=== PATIENT | male | born 1945 | race Caucasian/White ===

== ENCOUNTER 2019-11-02 05:11 | Inpatient (IN) | payer OTHER ==
[2019-11-02] MEDS ORDERED: Fentanyl 100 MCG/2 ML VIAL ONE (05:18)
[2019-11-02 05:31] LABS: #Basophils 0.1 thou/uL (0.0-0.2); #Eosinphils 0.2 thou/uL (0.0-0.7); #Lymphocytes 3.2 thou/uL (1.20-3.40); #Monocytes 0.5 thou/uL (0.11-0.59); #Neutrophils 5.2 thou/uL (1.40-6.50); %Basophils 0.8 % (0.0-1.0); %Eosinophils 1.8 % (0.0-10.0); %Lymphocytes 34.9 % (21.0-51.0); %Monocytes 5.5 % (0.0-10.0); Hemoglobin 15.7 g/dL (14.0-18.0); Mean Corpuscular HGB CONC 34.2 g/dL (32.0-36.0); Mean Corpuscular Volume 96.3 fL (78.0-98.0); Mean Platelet Volume 7.4 fL (7.4-10.4); Platelet Count 227 thou/uL (130-400); RBC Distribution Width 11.2 % (11.5-14.5); Red Blood Cell (RBC) Count 4.77 mill/uL (4.70-6.10); White Blood Cell (WBC) Count 9.2 thou/uL (4.8-10.8)
[2019-11-02 05:40] LABS: Prothrombin Time 13.2 SEC (12.0-14.7)
[2019-11-02 05:41] LABS: PTT 93.1 SEC (22.9-36.1)
[2019-11-02 06:30] LABS: ALT (SGPT) 33 U/L (8-55); AST (SGOT) 44 U/L (5-34); Albumin 4.1 g/dL (3.4-4.8); Alkaline Phosphatase 73 U/L (40-110); Anion Gap 18 mmol/L (10-20); BUN (Urea Nitrogen) 17 mg/dL (8.4-25.7); Bilirubin, Total 0.5 mg/dL (0.2-1.2); CK (CPK) 540 U/L (30-200); Calc. Creatinine Clearance 0 mL/min (70-130); Calcium 9.4 mg/dL (7.8-10.44); Carbon Dioxide 19 mmol/L (23-31); Chloride 106 mmol/L (98-107); Estimated GFR-MDRD 55; Globulin 2.5 g/dL (2.4-3.5); Glucose 140 mg/dL (83-110); Lipase 241 U/L (8-78); Potassium 3.9 mmol/L (3.5-5.1); Protein, Total 6.6 g/dL (5.8-8.1); Sodium 139 mmol/L (136-145)
[2019-11-02] MEDS ORDERED: Aggrastat 12.5 MG/250 ML 250 ML ONE (06:51)
[2019-11-02] MEDS ORDERED: TICAGRELOR 90 MG TABLET ONE (06:51)
[2019-11-02] MEDS ORDERED: Atropine Sulfate 1 mg/1 ml Vial ONE (07:17)
[2019-11-02] MEDS ORDERED: Atropine Sulfate 1 mg/10 ml Syringe ONE (07:17)
[2019-11-02 07:51] LABS: CKMB 13.4 ng/mL (0-6.6)
[2019-11-02] MEDS ORDERED: Nitroglycerin 0.4 MG TAB (25 Tab Bottle) SL PRN (08:04)
[2019-11-02] MEDS ORDERED: Morphine 4 MG/ML VIAL IV PRN (08:05)
[2019-11-02] MEDS ORDERED: Mag-Al 1200 mg/1200 mg/30 ML UDCUP PO PRN (08:08)
[2019-11-02] MEDS ORDERED: Acetaminophen/Codeine 30-300mg Tablet PO PRN ×2 (08:08→08:09)
[2019-11-02] MEDS ORDERED: Milk Of Magnesia 30 ML UDCUP PO PRN (08:08)
[2019-11-02] MEDS ORDERED: Zolpidem Tartrate 5 MG TAB PO PRN (08:09)
[2019-11-02] MEDS ORDERED: cloNIDine 0.1 MG TAB PO PRN (08:10)
[2019-11-02] MEDS ORDERED: Enoxaparin Sodium 100 MG/ML SYRINGE SC SCH (09:00)
--- NOTE | 2019-11-02 09:07 | RAD ---
PORTABLE CHEST: Date: 11/02/2019 HISTORY: Chest pain. No comparison. FINDINGS/IMPRESSION: Mild cardiomegaly. Vascular and interstitial markings are prominent, possibly representing mild conge stion. No focal consolidation or significant effusion. POS: [facility]
--- NOTE | 2019-11-02 09:26 | HP ---
INDICATION FOR ADMISSION: A 74-year-old patient with acute anterior myocardial infarction, ST-segment elevation. 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 He awoken this morning around 4 o'clock with what he describes as being back pain, which then radiated to the chest area. He went to the emergency room. He drove himself to the emergency room. EKG there showed acute ST-segment elevation in the anterior leads. He was then transferred to our facility. There was some delay in getting the patient to the cardiac concrete plant laborer in the midst of doing another acute [place]. The patient was then brought to the cardiac concrete plant laborer. By the time he arrived here, his pain had decreased, but he still described as having chest pain and back discomfort. He was not diaphoretic, had no shortness of breath, and we proceeded to the cardiac concrete plant laborer. PAST MEDICAL HISTORY: Significant for a quadriceps tear, which was repaired surgically. Otherwise, he has been healthy. He does have hypertension and hypercholesterolemia. He has been taking medications for his hypertension, but has not been taking his cholesterol medications. He takes multiple [id number] supplements. His risk factors for coronary artery disease included hypertension and hypercholesterolemia. He has no diabetes. He does not smoke and has no strong family history of heart disease, but his mother did have a myocardial infarction in her 60s. REVIEW OF SYSTEMS: Unremarkable except what was noted in the history of present illness. MEDICATIONS: He was takin. Amlodipine. 2. Multiple supplements. ALLERGIES: NONE. PHYSICAL EXAMINATION: GENERAL: Reveals a well-developed, well-nourished gentleman, who actually appears somewhat younger than his stated age. VITAL SIGNS: Blood pressure is 120/71, heart rate was 60s and 70s and shows a sinus rhythm, and respiratory rate 16. He is afebrile. HEENT: Shows the head to be normocephalic and atraumatic. Carotid pulses are present. HEART: His cardiac evaluation showed no evidence of a significant murmurs, heaves, thrills, bruits, or rubs. Carotid pulses were present. ABDOMEN: Unremarkable. EXTREMITIES: Showed no clubbing, cyanosis, or edema. NEUROLOGIC: He was fully intact. LABORATORY DATA: Performed at an outside facility showed a troponin I of 1.16 with an MB of 11.9. His BUN was 16 with a creatinine of 1.4 and AST was 55. Hemoglobin was 15.9. An EKG as noted above. The patient was taken emergently to the cardiac concrete plant laborer. I did explain the procedure and the risks to him to include bleeding, infection, possibility of myocardial infarction, CVA, renal insufficiency, allergic contrast reaction, and the possibility of and he agreed to proceed. IMPRESSION: 1. Acute ST-segment elevation anterior myocardial infarction. 2. Hypertension. 3. Hypercholesterolemia. Job ID: [id number]
[2019-11-02] MEDS ORDERED: Iopamidol 370 76% 50 ML VIAL FS ONE (09:28)
[2019-11-02] MEDS ORDERED: Iopamidol 370 76% 100 ML VIAL ONE (09:28)
[2019-11-02] MEDS ORDERED: Furosemide 20 MG/2 ML VIAL SLOW IVP SCH (10:00)
[2019-11-02] MEDS: Morphine 2 MG/ML SYRINGE SLOW IVP PRN ×2 (10:24→11:44)
[2019-11-02] MEDS ORDERED: Aggrastat 12.5 MG/250 ML 250 ML IVPB SCH (11:00)
[2019-11-02] MEDS: Carvedilol 3.125 MG TAB PO SCH ×2 (11:49→20:41)
[2019-11-02] MEDS: Lisinopril 2.5 MG TAB PO SCH (11:49)
[2019-11-02] MEDS: Aspirin Chewable 81 MG TAB PO SCH (11:50)
[2019-11-02] MEDS: TICAGRELOR 90 MG TABLET PO SCH ×2 (11:51→20:42)
[2019-11-02 12:15] LABS: #Lymphocytes 1.6 thou/uL (1.20-3.40); #Monocytes 0.8 thou/uL (0.11-0.59); #Neutrophils 9.9 thou/uL (1.40-6.50); %Basophils 0.3 % (0.0-1.0); %Eosinophils 0.3 % (0.0-10.0); %Lymphocytes 13.2 % (21.0-51.0); %Monocytes 6.1 % (0.0-10.0); %Neutrophils 80.1 % (42.0-75.0); Mean Corpuscular HGB CONC 34.8 g/dL (32.0-36.0); Mean Corpuscular Hemoglobin 33.1 pg (27.0-31.0); Mean Corpuscular Volume 95.2 fL (78.0-98.0); Mean Platelet Volume 7.3 fL (7.4-10.4); Platelet Count 260 thou/uL (130-400); RBC Distribution Width 11.2 % (11.5-14.5); Red Blood Cell (RBC) Count 5.14 mill/uL (4.70-6.10); White Blood Cell (WBC) Count 12.4 thou/uL (4.8-10.8)
[2019-11-02 13:07] LABS: Troponin I 281.605 ng/mL (< 0.028)
--- NOTE | 2019-11-02 14:00 | CON ---
DATE OF CONSULTATION: 11/02/2019 SERVICE: Pulmonary Medicine. REASON FOR CONSULTATION: ICU patient. HISTORY OF PRESENT ILLNESS: The patient is a 74-year-old white male with past medical history significant for coronary artery disease, dyslipidemia, and hypertension. He was in his usual state of health when he went to bed last night. He woke up at 0400 hours this morning with severe chest discomfort. He knew something was wrong and presented immediately to the emergency department, where he was discovered to be suffering from an ST-elevation GA. He was transferred to the mobile home laborer here. An LAD lesion was identified, and a stent was placed. There was also a very severe stenosis of the right coronary system. That being said, no intervention was performed there. After the stent was placed, he ended up having resolution in his chest discomfort. That being said, the night went on, he started having increasing dyspnea and limit his activity, and a little bit of a cough. He got a dose of Lasix, his shortness of breath is improved, albeit still present, but his cough has resolved completely. He denies any current or recent fevers, chills, cough, sputum production, nausea, vomiting, or diarrhea. Otherwise, he is in his usual state of health. PAST MEDICAL HISTORY: 1. Coronary artery disease. 2. Dyslipidemia. 3. Hypertension. PAST SURGICAL HISTORY: Repair of quadriceps tendon. FAMILY HISTORY: Noncontributory. SOCIAL HISTORY: Negative for alcohol, tobacco, or illicit drug use. 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 He has no exposure to chemicals, dust, asbestos, or tuberculosis. ALLERGIES: NO KNOWN DRUG ALLERGIES. MEDICATIONS: List of his inpatient medications was reviewed. I have added a little Ativan to be used on a p.r.n. basis. REVIEW OF SYSTEMS: General; head, ears, eyes, nose, throat; cardiovascular; respiratory; GI; ; musculoskeletal; neurologic; and skin are negative except as mentioned in the HPI. PHYSICAL EXAMINATION: VITAL SIGNS: Afebrile, pulse 85, blood pressure 145/106, respirations 25, and saturation 95% currently on 2 L nasal cannula. GENERAL: The patient is awake and alert, in no apparent distress. LUNGS: Excellent air entry with minimal dependent crackles present. There is no prolonged expiratory phase or wheezing appreciated. HEART: Normal rate and regular. ABDOMEN: Soft, nontender, and nondistended. Bowel sounds are positive. MUSCULOSKELETAL: No cyanosis or clubbing. There is no pitting in the bilateral lower extremities. Pulses are equal at the DP. : No Larsen. NEUROLOGIC: Grossly nonfocal. LABORATORY DATA: WBC 12.4, hemoglobin 17.0, and platelets 260,000. Troponin . Basic metabolic profile and liver function studies otherwise unremarkable. Lipase is mildly elevated at 241. IMAGING DATA: Chest x-ray demonstrates no acute cardiopulmonary process. There is no pneumothorax, effusions, or consolidating changes identified. ASSESSMENT: 1. Acute hypoxic respiratory failure, mild. 2. Acute myocardial infarction, status post PCI with TYLOR to LAD. DISCUSSION AND PLAN: The patient is doing fine from respiratory standpoint. We will repeat a lipase tomorrow morning. I will provide him with Ativan on as needed basis . Otherwise, supportive care will be continued. We will wean oxygen away as tolerated. Pulmonary will follow in this location. Job ID: [id number]
[2019-11-02] MEDS: Lorazepam 2 MG/ML VIAL SLOW IVP PRN ×2 (14:42→22:15)
[2019-11-02 18:38] LABS: #Lymphocytes 1.2 thou/uL (1.20-3.40); #Monocytes 0.7 thou/uL (0.11-0.59); #Neutrophils 10.7 thou/uL (1.40-6.50); %Basophils 0.1 % (0.0-1.0); %Eosinophils 0.1 % (0.0-10.0); %Lymphocytes 9.5 % (21.0-51.0); %Monocytes 5.6 % (0.0-10.0); %Neutrophils 84.7 % (42.0-75.0); Hemoglobin 16.8 g/dL (14.0-18.0); Mean Corpuscular Hemoglobin 32.6 pg (27.0-31.0); Mean Corpuscular Volume 95.7 fL (78.0-98.0); Mean Platelet Volume 7.3 fL (7.4-10.4); Platelet Count 265 thou/uL (130-400); RBC Distribution Width 11.3 % (11.5-14.5); Red Blood Cell (RBC) Count 5.16 mill/uL (4.70-6.10); White Blood Cell (WBC) Count 12.7 thou/uL (4.8-10.8)
[2019-11-02 18:51] LABS: Potassium 4.1 mmol/L (3.5-5.1)
[2019-11-02 19:21] LABS: Critical Call Chem Troponin I RESULT DECREASING; Troponin I 221.704 ng/mL (< 0.028)
[2019-11-02] MEDS: Famotidine 20 MG TAB PO SCH (20:41)
[2019-11-02] MEDS ORDERED: Atorvastatin Calcium 40 MG TAB PO SCH (21:00)
[2019-11-03 00:19] LABS: #Lymphocytes 1.7 thou/uL (1.20-3.40); #Neutrophils 10.3 thou/uL (1.40-6.50); %Basophils 0.3 % (0.0-1.0); %Eosinophils 0.2 % (0.0-10.0); %Lymphocytes 12.9 % (21.0-51.0); %Monocytes 7.4 % (0.0-10.0); %Neutrophils 79.2 % (42.0-75.0); Hemoglobin 15.9 g/dL (14.0-18.0); Mean Corpuscular HGB CONC 34.7 g/dL (32.0-36.0); Mean Corpuscular Hemoglobin 33.3 pg (27.0-31.0); Mean Platelet Volume 7.6 fL (7.4-10.4); Platelet Count 246 thou/uL (130-400); RBC Distribution Width 11.4 % (11.5-14.5); Red Blood Cell (RBC) Count 4.78 mill/uL (4.70-6.10)
[2019-11-03 03:54] LABS: #Basophils 0.1 thou/uL (0.0-0.2); #Lymphocytes 1.7 thou/uL (1.20-3.40); #Monocytes 1.1 thou/uL (0.11-0.59); #Neutrophils 11.8 thou/uL (1.40-6.50); %Eosinophils 0.2 % (0.0-10.0); %Lymphocytes 11.8 % (21.0-51.0); %Monocytes 7.3 % (0.0-10.0); %Neutrophils 79.8 % (42.0-75.0); Hemoglobin 16.3 g/dL (14.0-18.0); Mean Corpuscular HGB CONC 34.4 g/dL (32.0-36.0); Mean Corpuscular Volume 95.9 fL (78.0-98.0); Mean Platelet Volume 7.6 fL (7.4-10.4); Platelet Count 256 thou/uL (130-400); RBC Distribution Width 11.3 % (11.5-14.5); Red Blood Cell (RBC) Count 4.96 mill/uL (4.70-6.10); White Blood Cell (WBC) Count 14.8 thou/uL (4.8-10.8)
[2019-11-03 04:44] LABS: ALT (SGPT) 103 U/L (8-55); AST (SGOT) 471 U/L (5-34); Albumin 3.9 g/dL (3.4-4.8); Alkaline Phosphatase 60 U/L (40-110); Anion Gap 13 mmol/L (10-20); BUN (Urea Nitrogen) 23 mg/dL (8.4-25.7); Bilirubin, Total 1.3 mg/dL (0.2-1.2); Calc. Creatinine Clearance 70 mL/min (70-130); Calcium 9.1 mg/dL (7.8-10.44); Carbon Dioxide 25 mmol/L (23-31); Chloride 106 mmol/L (98-107); Estimated GFR-MDRD 56; Globulin 2.4 g/dL (2.4-3.5); Glucose 125 mg/dL (83-110); Lipase 31 U/L (8-78); Potassium 4.2 mmol/L (3.5-5.1); Protein, Total 6.3 g/dL (5.8-8.1); Sodium 140 mmol/L (136-145)
[2019-11-03] MEDS ORDERED: FLU VACC TS2019-20(65YR UP)/PF 180 MCG/0.5 ML SYRINGE IM ONE (09:00)
[2019-11-03] MEDS ORDERED: Prevnar 13-Val Conj/PF 0.5 ML SYRINGE IM ONE (09:00)
[2019-11-03] MEDS: Aspirin Chewable 81 MG TAB PO SCH (09:09)
[2019-11-03] MEDS: Carvedilol 3.125 MG TAB PO SCH ×2 (09:10→20:02)
[2019-11-03] MEDS: Lisinopril 2.5 MG TAB PO SCH (09:10)
[2019-11-03] MEDS: Famotidine 20 MG TAB PO SCH ×2 (09:11→20:02)
[2019-11-03] MEDS: TICAGRELOR 90 MG TABLET PO SCH ×2 (09:13→20:03)
[2019-11-03 12:54] LABS: Hemoglobin 16.3 g/dL (14.0-18.0); Mean Corpuscular Hemoglobin 31.6 pg (27.0-31.0); Mean Corpuscular Volume 95.6 fL (78.0-98.0); Mean Platelet Volume 7.5 fL (7.4-10.4); Platelet Count 305 thou/uL (130-400); RBC Distribution Width 11.4 % (11.5-14.5); Red Blood Cell (RBC) Count 5.15 mill/uL (4.70-6.10); White Blood Cell (WBC) Count 15.6 thou/uL (4.8-10.8)
[2019-11-03 13:33] LABS: Band 15 % (5-11); Elliptocytes SLIGHT = 2-5 cells (100X) (0-1/hpf); Lymphocytes 1 % (21-51); MDiff Complete? YES; Macrocytosis SLIGHT = 6-15 cells (100X) (0-5/hpf); Monocytes 4 % (0-10); Neutrophil 73 % (42-75); Ovalocytes MODERATE= 6-15 cells (100X) (0-1/hpf); Platelet Morphology Comment Appears Adequate; Polychromasia SLIGHT = 2-3 cells (100X) (0-2/hpf); Reactive Lymphocytes 7 % (0-10)
--- NOTE | 2019-11-03 17:00 | PRG ---
DATE OF SERVICE: 11/03/2019 SERVICE: Pulmonary Medicine. INTERVAL HISTORY: The patient is doing great from respiratory standpoint. He was able to walk with Physical Therapy. He has also been walking on his own. With this, he does have a little bit of dyspnea, limits his activity worse than usual. Previously, he was able to work on pretty high level. Now, he does have a little bit of increasing shortness of breath whenever exerting himself minimally. He denies any current fevers or chills. There were no significant overnight events. He has a CPAP at home, but does not have it available for use currently. PHYSICAL EXAMINATION: VITAL SIGNS: Afebrile, pulse 67, blood pressure 152/104, respirations 17, and saturation 94%, currently on room air. GENERAL: The patient is awake and alert, in no apparent distress. LUNGS: Decent air entry. Minimal crackles are present. No prolonged expiratory phase or wheezing is appreciated. HEART: Normal rate. Regular. ABDOMEN: Soft, nontender, and nondistended. Bowel sounds are positive. MUSCULOSKELETAL: No cyanosis or clubbing. There is no pitting in the bilateral lower extremities. NEUROLOGIC: Grossly nonfocal. LABORATORY DATA: WBC 15.6, hemoglobin 16.3, platelets 305,000. Neutrophils are 73% with 15% bands superimposed on that. AST and ALT are significantly up trending. Total bilirubin level has elevated as well. Basic metabolic profile and liver function studies are otherwise unremarkable. Troponin remains elevated. ASSESSMENT: 1. Acute hypoxic respiratory failure, improved. 2. Acute myocardial infarction, status post PCI with TYLOR to LAD. 3. Obstructive sleep apnea, compliant with CPAP therapy based on history. DISCUSSION AND PLAN: The patient is doing okay from respiratory standpoint. He is going to continue increasing activity as tolerated. Pulmonary/Critical Care will continue to follow along. If the patient remains in-house to the floor, I will sign off. Please call with additional questions or concerns through time. Job ID: [id number]
--- NOTE | 2019-11-03 17:02 | EKG ---
Test Reason : Blood Pressure : / mmHG Vent. Rate : 065 BPM Atrial Rate : 065 BPM P-R Int : 178 ms QRS Dur : 084 ms QT Int : 400 ms P-R-T Axes : 084 -61 007 degrees QTc Int : 416 ms Normal sinus rhythm Left axis deviation Anteroseptal infarct possibly acute Abnormal ECG No previous ECGs available Confirmed by DR. Abraham ODONNELL ([id number]) on 11/03/2019 5:02:31 PM Referred By: EVAN Confirmed By:DR. Abraham ODONNELL
[2019-11-03 18:00] LABS: #Lymphocytes 2.1 thou/uL (1.20-3.40); #Monocytes 1.2 thou/uL (0.11-0.59); #Neutrophils 12.3 thou/uL (1.40-6.50); %Basophils 0.2 % (0.0-1.0); %Eosinophils 0.1 % (0.0-10.0); %Lymphocytes 13.3 % (21.0-51.0); %Monocytes 7.9 % (0.0-10.0); %Neutrophils 78.6 % (42.0-75.0); Hemoglobin 16.8 g/dL (14.0-18.0); Mean Corpuscular HGB CONC 34.3 g/dL (32.0-36.0); Mean Corpuscular Hemoglobin 33.1 pg (27.0-31.0); Mean Corpuscular Volume 96.4 fL (78.0-98.0); Mean Platelet Volume 7.5 fL (7.4-10.4); Platelet Count 309 thou/uL (130-400); RBC Distribution Width 11.4 % (11.5-14.5); Red Blood Cell (RBC) Count 5.09 mill/uL (4.70-6.10); White Blood Cell (WBC) Count 15.7 thou/uL (4.8-10.8)
[2019-11-03] MEDS: Atorvastatin Calcium 40 MG TAB PO SCH (20:02)
[2019-11-04 04:36] LABS: ALT (SGPT) 78 U/L (8-55); AST (SGOT) 210 U/L (5-34); Albumin 3.9 g/dL (3.4-4.8); Alkaline Phosphatase 56 U/L (40-110); Bilirubin, Direct 0.4 mg/dL (0.1-0.3); Bilirubin, Total 1.4 mg/dL (0.2-1.2); Protein, Total 6.5 g/dL (5.8-8.1)
[2019-11-04 05:31] VITALS: BMI 29.9
[2019-11-04 06:11] LABS: #Monocytes 1.1 thou/uL (0.11-0.59); #Neutrophils 11.8 thou/uL (1.40-6.50); %Basophils 0.1 % (0.0-1.0); %Eosinophils 0.2 % (0.0-10.0); %Lymphocytes 13.2 % (21.0-51.0); %Monocytes 7.6 % (0.0-10.0); %Neutrophils 78.8 % (42.0-75.0); Hemoglobin 14.8 g/dL (14.0-18.0); Mean Corpuscular HGB CONC 32.4 g/dL (32.0-36.0); Mean Corpuscular Hemoglobin 31.2 pg (27.0-31.0); Mean Corpuscular Volume 96.2 fL (78.0-98.0); Mean Platelet Volume 7.7 fL (7.4-10.4); Platelet Count 244 thou/uL (130-400); RBC Distribution Width 11.3 % (11.5-14.5); Red Blood Cell (RBC) Count 4.75 mill/uL (4.70-6.10); White Blood Cell (WBC) Count 14.9 thou/uL (4.8-10.8)
[2019-11-04] MEDS: Carvedilol 3.125 MG TAB PO SCH ×2 (08:27→19:55)
[2019-11-04] MEDS: Famotidine 20 MG TAB PO SCH ×2 (08:27→19:55)
[2019-11-04] MEDS: Lisinopril 2.5 MG TAB PO SCH (08:28)
[2019-11-04] MEDS: TICAGRELOR 90 MG TABLET PO SCH ×2 (08:28→19:56)
[2019-11-04] MEDS: Aspirin Chewable 81 MG TAB PO SCH (08:28)
[2019-11-04] MEDS: Furosemide 20 MG TAB PO SCH (08:28)
[2019-11-04] MEDS ORDERED: Potassium Chloride 10 MEQ TAB PO SCH (09:15)
[2019-11-04] MEDS ORDERED: Lisinopril 2.5 MG TAB PO SCH (09:15)
[2019-11-04 12:20] LABS: #Lymphocytes 1.9 thou/uL (1.20-3.40); #Monocytes 1.5 thou/uL (0.11-0.59); #Neutrophils 14.4 thou/uL (1.40-6.50); %Basophils 0.2 % (0.0-1.0); %Eosinophils 0.2 % (0.0-10.0); %Lymphocytes 10.5 % (21.0-51.0); %Monocytes 8.5 % (0.0-10.0); %Neutrophils 80.7 % (42.0-75.0); Hemoglobin 15.6 g/dL (14.0-18.0); Mean Corpuscular HGB CONC 34.2 g/dL (32.0-36.0); Mean Corpuscular Hemoglobin 32.9 pg (27.0-31.0); Mean Corpuscular Volume 96.2 fL (78.0-98.0); Mean Platelet Volume 7.7 fL (7.4-10.4); Platelet Count 269 thou/uL (130-400); RBC Distribution Width 11.3 % (11.5-14.5); Red Blood Cell (RBC) Count 4.74 mill/uL (4.70-6.10); White Blood Cell (WBC) Count 17.9 thou/uL (4.8-10.8)
[2019-11-04 18:18] LABS: #Lymphocytes 1.7 thou/uL (1.20-3.40); #Monocytes 0.9 thou/uL (0.11-0.59); #Neutrophils 10.1 thou/uL (1.40-6.50); %Eosinophils 0.1 % (0.0-10.0); %Lymphocytes 13.3 % (21.0-51.0); %Monocytes 7.3 % (0.0-10.0); %Neutrophils 79.3 % (42.0-75.0); Hemoglobin 14.3 g/dL (14.0-18.0); Mean Corpuscular HGB CONC 33.9 g/dL (32.0-36.0); Mean Corpuscular Hemoglobin 32.6 pg (27.0-31.0); Mean Corpuscular Volume 96.2 fL (78.0-98.0); Mean Platelet Volume 7.4 fL (7.4-10.4); Platelet Count 210 thou/uL (130-400); RBC Distribution Width 11.3 % (11.5-14.5); White Blood Cell (WBC) Count 12.7 thou/uL (4.8-10.8)
--- NOTE | 2019-11-04 18:37 | PRG ---
DATE OF SERVICE: 11/04/2019 SERVICE: Pulmonary Medicine. INTERVAL HISTORY: The patient is doing really well from a respiratory standpoint. He has been able to walk around the hospital without much difficulty. That being said, he does have a little dyspnea that limits his activity. He has no complaints of chest discomfort, nausea, or vomiting currently. Otherwise, there has been no interval change to his condition and nursing reports no overnight events. PHYSICAL EXAMINATION: VITAL SIGNS: Afebrile, pulse 67, blood pressure 110/79, respirations 21, saturation 98%, currently on room air. GENERAL: The patient is awake and alert, in no apparent distress. LUNGS: Decent air entry. No prolonged expiratory phase or wheezing is appreciated. HEART: Normal rate, regular. ABDOMEN: Soft, nontender, and nondistended. Bowel sounds are positive. MUSCULOSKELETAL: No cyanosis or clubbing. There is no pitting in the bilateral lower extremities. NEUROLOGIC: Grossly nonfocal. LABORATORY DATA: WBC 17.9, hemoglobin 15.6, and platelets 269,000. AST and ALT are gently downtrending, total bilirubin 1.4, slowly up trending. IMAGING STUDIES: Echocardiogram demonstrates 35% to 40% ejection fraction with areas of akinesis and hypokinesis. ASSESSMENT: 1. Acute hypoxic respiratory failure, resolved. 2. Acute myocardial infarction, status post percutaneous coronary intervention with drug-eluting stent to left anterior descending artery. 3. Obstructive sleep apnea, compliant with CPAP, based on history. DISCUSSION AND PLAN: The patient is doing great from a respiratory standpoint. At this point, he has no further requirements for inpatient Pulmonary or Critical Care opinion, and I will sign off. Please call with additional questions or concerns through time moving forward. Job ID: [id number]
[2019-11-04] MEDS: Atorvastatin Calcium 40 MG TAB PO SCH (19:55)
[2019-11-05 00:19] LABS: #Basophils 0.1 thou/uL (0.0-0.2); #Lymphocytes 2.5 thou/uL (1.20-3.40); #Monocytes 1.1 thou/uL (0.11-0.59); #Neutrophils 12.1 thou/uL (1.40-6.50); %Basophils 0.4 % (0.0-1.0); %Eosinophils 0.2 % (0.0-10.0); %Lymphocytes 15.7 % (21.0-51.0); %Neutrophils 76.7 % (42.0-75.0); Hemoglobin 14.9 g/dL (14.0-18.0); Mean Corpuscular HGB CONC 34.6 g/dL (32.0-36.0); Mean Corpuscular Hemoglobin 33.2 pg (27.0-31.0); Mean Corpuscular Volume 96.1 fL (78.0-98.0); Mean Platelet Volume 7.6 fL (7.4-10.4); Platelet Count 259 thou/uL (130-400); RBC Distribution Width 11.2 % (11.5-14.5); Red Blood Cell (RBC) Count 4.47 mill/uL (4.70-6.10); White Blood Cell (WBC) Count 15.7 thou/uL (4.8-10.8)
[2019-11-05 05:20] LABS: #Lymphocytes 1.4 thou/uL (1.20-3.40); #Monocytes 0.9 thou/uL (0.11-0.59); #Neutrophils 9.8 thou/uL (1.40-6.50); %Eosinophils 0.2 % (0.0-10.0); %Lymphocytes 11.8 % (21.0-51.0); %Monocytes 7.7 % (0.0-10.0); %Neutrophils 80.3 % (42.0-75.0); Hemoglobin 14.3 g/dL (14.0-18.0); Mean Corpuscular HGB CONC 34.4 g/dL (32.0-36.0); Mean Corpuscular Hemoglobin 33.1 pg (27.0-31.0); Mean Corpuscular Volume 96.3 fL (78.0-98.0); Mean Platelet Volume 7.8 fL (7.4-10.4); Platelet Count 220 thou/uL (130-400); RBC Distribution Width 11.1 % (11.5-14.5); Red Blood Cell (RBC) Count 4.31 mill/uL (4.70-6.10); White Blood Cell (WBC) Count 12.2 thou/uL (4.8-10.8)
[2019-11-05] MEDS: Potassium Chloride 10 MEQ TAB PO SCH (09:42)
[2019-11-05] MEDS: TICAGRELOR 90 MG TABLET PO SCH ×2 (09:42→21:00)
[2019-11-05] MEDS: Famotidine 20 MG TAB PO SCH ×2 (09:42→21:00)
[2019-11-05] MEDS: Lisinopril 2.5 MG TAB PO SCH (09:42)
[2019-11-05] MEDS: Aspirin Chewable 81 MG TAB PO SCH (09:42)
[2019-11-05] MEDS: Furosemide 20 MG TAB PO SCH (09:43)
[2019-11-05 11:58] LABS: #Lymphocytes 1.4 thou/uL (1.20-3.40); #Monocytes 0.9 thou/uL (0.11-0.59); #Neutrophils 11.2 thou/uL (1.40-6.50); %Basophils 0.2 % (0.0-1.0); %Eosinophils 0.1 % (0.0-10.0); %Monocytes 6.9 % (0.0-10.0); Hemoglobin 14.1 g/dL (14.0-18.0); Mean Corpuscular HGB CONC 33.8 g/dL (32.0-36.0); Mean Corpuscular Hemoglobin 32.6 pg (27.0-31.0); Mean Corpuscular Volume 96.5 fL (78.0-98.0); Mean Platelet Volume 7.4 fL (7.4-10.4); Platelet Count 237 thou/uL (130-400); RBC Distribution Width 11.2 % (11.5-14.5); Red Blood Cell (RBC) Count 4.33 mill/uL (4.70-6.10); White Blood Cell (WBC) Count 13.5 thou/uL (4.8-10.8)
--- NOTE | 2019-11-05 12:49 | PDOC.CPN ---
- Subjective Date: 11/05/19 Time: 12:54 Interval history: The pt seen and examined. No overnight events. No cardiac complaints. - Objective Allergies/Adverse Reactions: Allergies Allergy/AdvReac Type Severity Reaction Status Date / Time No Known Allergies Allergy Unverified 11/02/19 07:56 Visit Medications: Current Medications Acetaminophen/Codeine Phosphate (Tylenol #3) 1 tab PO Q4H PRN PRN Reason: M Acetaminophen/Codeine Phosphate (Tylenol #3) 2 tab PO Q4H PRN PRN Reason: Moderate Pain (4-6) Last Admin: 11/02/19 14:42 Dose: 2 tab Al Hydroxide/Mg Hydroxide (Maalox) 30 ml PO Q3H PRN PRN Reason: Heartburn or Indigestion Aspirin (Aspirin Chewable) 81 mg PO DAILY [facility] Last Admin: 11/05/19 09:42 Dose: 81 mg Atorvastatin Calcium (Lipitor) 40 mg PO HS [facility] Last Admin: 11/04/19 19:55 Dose: 40 mg Clonidine (Catapres) 0.1 mg PO Q2H PRN PRN Reason: SBP > 160 Famotidine (Pepcid) 20 mg PO BID [facility] Last Admin: 11/05/19 09:42 Dose: 20 mg Furosemide (Lasix) 20 mg PO DAILY [facility] Last Admin: 11/05/19 09:43 Dose: 20 mg Lisinopril (Zestril) 5 mg PO DAILY [facility] Last Admin: 11/05/19 09:42 Dose: 5 mg Lorazepam (Ativan) 1 mg SLOW IVP Q4H PRN PRN Reason: Anxiety/Agitation Last Admin: 11/02/19 22:15 Dose: 1 mg Magnesium Hydroxide (Milk Of Magnesium) 30 ml PO Q12H PRN PRN Reason: Constipation Morphine Sulfate (Morphine) 2 mg SLOW IVP Q4H PRN PRN Reason: Moderate Pain (4-6) Last Admin: 11/02/19 11:44 Dose: 2 mg Morphine Sulfate (Morphine) 4 mg IV Q4H PRN PRN Reason: Severe Pain (7-10) Nitroglycerin (Nitrostat) 0.4 mg SL Q5MIN PRN PRN Reason: Chest Pain Potassium Chloride (Klor-Con 10) 10 meq PO QAM-WM [facility] Last Admin: 11/05/19 09:42 Dose: 10 meq Sodium Chloride (Flush - Normal Saline) 10 ml IVF Q12HR JF Last Admin: 11/05/19 09:43 Dose: 10 ml Sodium Chloride (Flush - Normal Saline) 10 ml IVF PRN PRN PRN Reason: Saline Flush Ticagrelor (Brilinta) 90 mg PO BID [facility] Last Admin: 11/05/19 09:42 Dose: 90 mg Zolpidem Tartrate (Ambien) 5 mg PO HSPRN PRN PRN Reason: IMSOMNIA Last Admin: 11/02/19 22:15 Dose: 5 mg Vital Signs & Weight: Vital Signs Temp Pulse Resp BP BP Pulse Ox 11/05/19 11:20 97.7 F 78 17 127/83 91 L 11/05/19 07:58 97.3 F L 89 18 135/77 95 11/05/19 03:25 98.4 F 68 18 113/64 92 L Weight 198 lb - Physical Exam General: alert & oriented x3 HEENT: mucus membranes moist Neck: supple neck Cardiac: regular rate and rhythm, S1/S2 Lungs: clear to auscultation Neuro: cranial nerve 2-12 intact Abdomen: unremarkable Skin: clear - Labs Result Diagrams: 11/05/19 11:48 11/03/19 03:32 Troponin/CKMB CK-MB (CK-2) 13.4 ng/mL (0-6.6) H* 11/02/19 05:18 Troponin I 221.704 ng/mL (< 0.028) H* 11/02/19 18:22 - Telemetry Sinus rhythms and dysrhythmias: sinus rhythm - Assessment/Plan Assessment/Plan: 1. CAD with s/p LHC on 11/02/2019 with TYLOR stent x 2 in prox and mid LAD and 80 % stenosis in mid RCA, which need further intervention; On Lisinopril, ASA, Lipitor and Brilinta; Coreg was stopped due to bradycardia 2. HLD - on Lipitor 40mg qd 3. Sleep apnea with Cpap 4. Bradycardia - Coreg is on hold from this AM; however, he had several episodes of dizziness with HR 30s today MAR reviewed
[2019-11-05 16:32] LABS: Magnesium 2.1 mg/dL (1.6-2.6); Potassium 3.9 mmol/L (3.5-5.1)
[2019-11-05] MEDS ORDERED: Furosemide 20 MG/2 ML VIAL SLOW IVP SCH (17:00)
[2019-11-05 17:54] LABS: #Lymphocytes 1.7 thou/uL (1.20-3.40); #Monocytes 0.9 thou/uL (0.11-0.59); #Neutrophils 9.5 thou/uL (1.40-6.50); %Basophils 0.2 % (0.0-1.0); %Eosinophils 0.3 % (0.0-10.0); %Lymphocytes 13.6 % (21.0-51.0); %Monocytes 7.2 % (0.0-10.0); %Neutrophils 78.7 % (42.0-75.0); Hemoglobin 14.5 g/dL (14.0-18.0); Mean Corpuscular HGB CONC 34.4 g/dL (32.0-36.0); Mean Corpuscular Hemoglobin 33.1 pg (27.0-31.0); Mean Corpuscular Volume 96.3 fL (78.0-98.0); Mean Platelet Volume 8.8 fL (7.4-10.4); Platelet Count 269 thou/uL (130-400); RBC Distribution Width 11.2 % (11.5-14.5); Red Blood Cell (RBC) Count 4.38 mill/uL (4.70-6.10); White Blood Cell (WBC) Count 12.1 thou/uL (4.8-10.8)
[2019-11-05] MEDS: Atorvastatin Calcium 40 MG TAB PO SCH (21:00)
[2019-11-06 00:18] LABS: Hemoglobin 13.9 g/dL (14.0-18.0); Mean Corpuscular Hemoglobin 32.7 pg (27.0-31.0); Mean Corpuscular Volume 96.4 fL (78.0-98.0); Mean Platelet Volume 7.9 fL (7.4-10.4); Platelet Count 233 thou/uL (130-400); RBC Distribution Width 11.2 % (11.5-14.5); Red Blood Cell (RBC) Count 4.25 mill/uL (4.70-6.10); White Blood Cell (WBC) Count 11.4 thou/uL (4.8-10.8)
[2019-11-06 00:43] LABS: Band 2 % (5-11); Lymphocytes 12 % (21-51); MDiff Complete? YES; Monocytes 6 % (0-10); Neutrophil 80 % (42-75)
[2019-11-06 06:08] LABS: #Basophils 0.1 thou/uL (0.0-0.2); #Lymphocytes 1.4 thou/uL (1.20-3.40); #Monocytes 0.7 thou/uL (0.11-0.59); #Neutrophils 7.9 thou/uL (1.40-6.50); %Basophils 0.5 % (0.0-1.0); %Eosinophils 0.3 % (0.0-10.0); %Lymphocytes 13.6 % (21.0-51.0); %Monocytes 6.9 % (0.0-10.0); %Neutrophils 78.7 % (42.0-75.0); Hemoglobin 13.6 g/dL (14.0-18.0); Mean Corpuscular HGB CONC 31.8 g/dL (32.0-36.0); Mean Corpuscular Hemoglobin 30.7 pg (27.0-31.0); Mean Corpuscular Volume 96.5 fL (78.0-98.0); Mean Platelet Volume 7.8 fL (7.4-10.4); Platelet Count 242 thou/uL (130-400); RBC Distribution Width 11.1 % (11.5-14.5); Red Blood Cell (RBC) Count 4.42 mill/uL (4.70-6.10)
[2019-11-06 06:37] LABS: ALT (SGPT) 47 U/L (8-55); AST (SGOT) 60 U/L (5-34); Albumin 3.5 g/dL (3.4-4.8); Alkaline Phosphatase 49 U/L (40-110); Anion Gap 12 mmol/L (10-20); BUN (Urea Nitrogen) 37 mg/dL (8.4-25.7); Bilirubin, Total 1.1 mg/dL (0.2-1.2); Calc. Creatinine Clearance 65 mL/min (70-130); Calcium 8.7 mg/dL (7.8-10.44); Carbon Dioxide 26 mmol/L (23-31); Chloride 105 mmol/L (98-107); Estimated GFR-MDRD 57; Globulin 2.5 g/dL (2.4-3.5); Glucose 113 mg/dL (83-110); Potassium 3.6 mmol/L (3.5-5.1); Sodium 139 mmol/L (136-145)
--- NOTE | 2019-11-06 08:23 | EKG ---
Test Reason : Blood Pressure : / mmHG Vent. Rate : 070 BPM Atrial Rate : 070 BPM P-R Int : 174 ms QRS Dur : 086 ms QT Int : 450 ms P-R-T Axes : 093 -51 252 degrees QTc Int : 486 ms Normal sinus rhythm Left axis deviation Anteroseptal infarct (cited on or before 02-NOV-2019) T wave abnormality, consider lateral ischemia Abnormal ECG When compared with ECG of 02-NOV-2019 08:29, Serial changes of evolving Anteroseptal infarct Present Confirmed by DR. Felicia AMEZCUA ([id number]) on 11/06/2019 8:23:21 AM Referred By: EVAN Confirmed By:DR. Felicia AMEZCUA
[2019-11-06] MEDS: Potassium Chloride 10 MEQ TAB PO SCH (09:30)
[2019-11-06] MEDS: Famotidine 20 MG TAB PO SCH ×2 (09:31→22:50)
[2019-11-06] MEDS: TICAGRELOR 90 MG TABLET PO SCH ×2 (09:31→22:50)
[2019-11-06] MEDS: Aspirin Chewable 81 MG TAB PO SCH (09:31)
[2019-11-06] MEDS: Furosemide 20 MG TAB PO SCH (09:31)
[2019-11-06] MEDS: Lisinopril 2.5 MG TAB PO SCH (09:33)
--- NOTE | 2019-11-06 11:30 | PDOC.CPN ---
- Subjective Date: 11/06/19 Time: 11:32 Interval history: The pt seen and examined. No overnight events. No cardiac complaints. - Objective Allergies/Adverse Reactions: Allergies Allergy/AdvReac Type Severity Reaction Status Date / Time No Known Allergies Allergy Unverified 11/02/19 07:56 Visit Medications: Current Medications Acetaminophen/Codeine Phosphate (Tylenol #3) 1 tab PO Q4H PRN PRN Reason: M Acetaminophen/Codeine Phosphate (Tylenol #3) 2 tab PO Q4H PRN PRN Reason: Moderate Pain (4-6) Last Admin: 11/02/19 14:42 Dose: 2 tab Al Hydroxide/Mg Hydroxide (Maalox) 30 ml PO Q3H PRN PRN Reason: Heartburn or Indigestion Aspirin (Aspirin Chewable) 81 mg PO DAILY [facility] Last Admin: 11/06/19 09:31 Dose: 81 mg Atorvastatin Calcium (Lipitor) 40 mg PO HS [facility] Last Admin: 11/05/19 21:00 Dose: 40 mg Clonidine (Catapres) 0.1 mg PO Q2H PRN PRN Reason: SBP > 160 Famotidine (Pepcid) 20 mg PO BID [facility] Last Admin: 11/06/19 09:31 Dose: 20 mg Furosemide (Lasix) 20 mg PO DAILY [facility] Last Admin: 11/06/19 09:31 Dose: 20 mg Lisinopril (Zestril) 5 mg PO DAILY [facility] Last Admin: 11/06/19 09:33 Dose: Not Given Lorazepam (Ativan) 1 mg SLOW IVP Q4H PRN PRN Reason: Anxiety/Agitation Last Admin: 11/02/19 22:15 Dose: 1 mg Magnesium Hydroxide (Milk Of Magnesium) 30 ml PO Q12H PRN PRN Reason: Constipation Morphine Sulfate (Morphine) 2 mg SLOW IVP Q4H PRN PRN Reason: Moderate Pain (4-6) Last Admin: 11/02/19 11:44 Dose: 2 mg Morphine Sulfate (Morphine) 4 mg IV Q4H PRN PRN Reason: Severe Pain (7-10) Nitroglycerin (Nitrostat) 0.4 mg SL Q5MIN PRN PRN Reason: Chest Pain Potassium Chloride (Klor-Con 10) 10 meq PO QAM-WM [facility] Last Admin: 11/06/19 09:30 Dose: 10 meq Sodium Chloride (Flush - Normal Saline) 10 ml IVF Q12HR JF Last Admin: 11/06/19 09:32 Dose: 10 ml Sodium Chloride (Flush - Normal Saline) 10 ml IVF PRN PRN PRN Reason: Saline Flush Ticagrelor (Brilinta) 90 mg PO BID [facility] Last Admin: 11/06/19 09:31 Dose: 90 mg Zolpidem Tartrate (Ambien) 5 mg PO HSPRN PRN PRN Reason: IMSOMNIA Last Admin: 11/02/19 22:15 Dose: 5 mg Vital Signs & Weight: Vital Signs Temp Pulse Resp BP BP Pulse Ox 11/06/19 09:33 62 113/69 11/06/19 08:49 99 11/06/19 07:55 98.2 F 68 18 133/79 99 Weight 193 lb 4.8 oz - Physical Exam General: alert & oriented x3 HEENT: mucus membranes moist Neck: supple neck Cardiac: regular rate and rhythm, S1/S2 Lungs: clear to auscultation - Labs Result Diagrams: 11/06/19 18:06 11/06/19 05:57 Troponin/CKMB CK-MB (CK-2) 13.4 ng/mL (0-6.6) H* 11/02/19 05:18 Troponin I 221.704 ng/mL (< 0.028) H* 11/02/19 18:22 - Telemetry Sinus rhythms and dysrhythmias: sinus rhythm - Assessment/Plan Assessment/Plan: 1. CAD with s/p LHC on 11/02/2019 with TYLOR stent x 2 in prox and mid LAD and 80 % stenosis in mid RCA, which need further intervention; On Lisinopril, ASA, Lipitor and Brilinta; Coreg was stopped due to bradycardia 2. HLD - on Lipitor 40mg qd 3. Sleep apnea with Cpap 4. Bradycardia - He had several episodes of bradycardia with HR 30s early this AM while the pt was wake and during exercising with PT. Coreg has been on hold ; Cath tomorrow? KENNETH reviewed Pt. seen and eval. by me, I agree with the A/P by the FAMILY PRESERVATION CASEWORKER. The bradycardia may be due to the RCA stenosis. After PTCA/Stent , if the HR does not stabilize he may eventually need a pacemaker or an AICD if the EF continues to be decreased. Will recheck the EF tomorrow at cath. I discussed the cath procedure and risks and agrees to proceed tomorrow. Chest clear. RRR. gjm
[2019-11-06 12:00] LABS: #Eosinphils 0.1 thou/uL (0.0-0.7); #Lymphocytes 1.1 thou/uL (1.20-3.40); #Monocytes 0.5 thou/uL (0.11-0.59); #Neutrophils 8.3 thou/uL (1.40-6.50); %Basophils 0.3 % (0.0-1.0); %Eosinophils 0.6 % (0.0-10.0); %Lymphocytes 10.5 % (21.0-51.0); %Monocytes 4.9 % (0.0-10.0); %Neutrophils 83.7 % (42.0-75.0); Hemoglobin 14.6 g/dL (14.0-18.0); Mean Corpuscular HGB CONC 34.5 g/dL (32.0-36.0); Mean Corpuscular Hemoglobin 33.3 pg (27.0-31.0); Mean Corpuscular Volume 96.4 fL (78.0-98.0); Platelet Count 259 thou/uL (130-400); RBC Distribution Width 11.2 % (11.5-14.5); Red Blood Cell (RBC) Count 4.38 mill/uL (4.70-6.10); White Blood Cell (WBC) Count 9.9 thou/uL (4.8-10.8)
[2019-11-06 18:12] LABS: #Eosinphils 0.1 thou/uL (0.0-0.7); #Neutrophils 7.8 thou/uL (1.40-6.50); %Basophils 0.3 % (0.0-1.0); %Eosinophils 0.8 % (0.0-10.0); %Lymphocytes 18.2 % (21.0-51.0); %Neutrophils 71.6 % (42.0-75.0); Hemoglobin 14.7 g/dL (14.0-18.0); Mean Corpuscular HGB CONC 34.2 g/dL (32.0-36.0); Mean Corpuscular Hemoglobin 32.8 pg (27.0-31.0); Mean Corpuscular Volume 95.9 fL (78.0-98.0); Mean Platelet Volume 7.7 fL (7.4-10.4); Platelet Count 289 thou/uL (130-400); Red Blood Cell (RBC) Count 4.49 mill/uL (4.70-6.10); White Blood Cell (WBC) Count 10.8 thou/uL (4.8-10.8)
[2019-11-06] MEDS ORDERED: Communication Order-Pharmacy FS SCH (19:15)
[2019-11-06] MEDS: Atorvastatin Calcium 40 MG TAB PO SCH (22:50)
[2019-11-07 00:06] LABS: #Basophils 0.1 thou/uL (0.0-0.2); #Eosinphils 0.1 thou/uL (0.0-0.7); #Lymphocytes 1.5 thou/uL (1.20-3.40); #Monocytes 0.8 thou/uL (0.11-0.59); #Neutrophils 7.4 thou/uL (1.40-6.50); %Basophils 0.5 % (0.0-1.0); %Eosinophils 0.8 % (0.0-10.0); %Lymphocytes 15.3 % (21.0-51.0); %Monocytes 8.4 % (0.0-10.0); %Neutrophils 75.1 % (42.0-75.0); Hemoglobin 14.3 g/dL (14.0-18.0); Mean Corpuscular HGB CONC 34.6 g/dL (32.0-36.0); Mean Corpuscular Hemoglobin 33.2 pg (27.0-31.0); Mean Corpuscular Volume 96.1 fL (78.0-98.0); Mean Platelet Volume 7.9 fL (7.4-10.4); Platelet Count 266 thou/uL (130-400); Red Blood Cell (RBC) Count 4.29 mill/uL (4.70-6.10); White Blood Cell (WBC) Count 9.9 thou/uL (4.8-10.8)
[2019-11-07] MEDS: Lisinopril 2.5 MG TAB PO SCH (05:55)
[2019-11-07] MEDS: Famotidine 20 MG TAB PO SCH ×2 (05:56→20:27)
[2019-11-07] MEDS: Aspirin Chewable 81 MG TAB PO SCH (05:56)
[2019-11-07] MEDS: TICAGRELOR 90 MG TABLET PO SCH ×2 (05:56→20:27)
[2019-11-07] MEDS: Potassium Chloride 10 MEQ TAB PO SCH (05:56)
[2019-11-07] MEDS: Furosemide 20 MG TAB PO SCH (05:57)
[2019-11-07 06:18] LABS: #Basophils 0.1 thou/uL (0.0-0.2); #Eosinphils 0.1 thou/uL (0.0-0.7); #Lymphocytes 1.6 thou/uL (1.20-3.40); #Monocytes 0.7 thou/uL (0.11-0.59); #Neutrophils 6.7 thou/uL (1.40-6.50); %Basophils 0.7 % (0.0-1.0); %Eosinophils 1.2 % (0.0-10.0); %Lymphocytes 17.4 % (21.0-51.0); %Monocytes 7.9 % (0.0-10.0); %Neutrophils 72.9 % (42.0-75.0); Hemoglobin 13.9 g/dL (14.0-18.0); Mean Corpuscular HGB CONC 33.7 g/dL (32.0-36.0); Mean Corpuscular Hemoglobin 32.3 pg (27.0-31.0); Mean Corpuscular Volume 95.7 fL (78.0-98.0); Mean Platelet Volume 7.8 fL (7.4-10.4); Platelet Count 261 thou/uL (130-400); RBC Distribution Width 11.1 % (11.5-14.5); White Blood Cell (WBC) Count 9.2 thou/uL (4.8-10.8)
[2019-11-07] MEDS ORDERED: Heparin 10,000 UNITS/1 ML VIAL ONE (06:41)
[2019-11-07 11:59] LABS: #Eosinphils 0.1 thou/uL (0.0-0.7); #Lymphocytes 1.3 thou/uL (1.20-3.40); #Monocytes 0.8 thou/uL (0.11-0.59); #Neutrophils 6.1 thou/uL (1.40-6.50); %Basophils 0.4 % (0.0-1.0); %Eosinophils 0.6 % (0.0-10.0); %Lymphocytes 15.7 % (21.0-51.0); %Monocytes 9.2 % (0.0-10.0); %Neutrophils 74.1 % (42.0-75.0); Hemoglobin 14.1 g/dL (14.0-18.0); Mean Corpuscular HGB CONC 34.9 g/dL (32.0-36.0); Mean Corpuscular Hemoglobin 33.7 pg (27.0-31.0); Mean Corpuscular Volume 96.7 fL (78.0-98.0); Mean Platelet Volume 7.8 fL (7.4-10.4); Platelet Count 266 thou/uL (130-400); Red Blood Cell (RBC) Count 4.17 mill/uL (4.70-6.10); White Blood Cell (WBC) Count 8.3 thou/uL (4.8-10.8)
[2019-11-07] MEDS ORDERED: Verapamil 5 MG/2 ML VIAL ONE (12:22)
[2019-11-07] MEDS ORDERED: Nitroglycerin 100MG/250ML BOT 250 ML ONE (12:22)
[2019-11-07] MEDS ORDERED: Midazolam HCl 2 mg/2 ml Vial ONE (12:45)
[2019-11-07] MEDS ORDERED: Iopamidol 370 76% 100 ML VIAL ONE (13:15)
[2019-11-07] MEDS ORDERED: Iopamidol 370 76% 50 ML VIAL FS ONE (13:15)
--- NOTE | 2019-11-07 15:33 | PDOC.CPN ---
- Subjective Date: 11/07/19 Time: 14:00 - Review of Systems General: reports: night sweats, fatigue Respiratory: reports: congestion, shortness of breath Cardiovascular: reports: chest pain, palpitation Gastrointestinal: reports: nausea, constipation, abd pain Musculoskeletal: reports: pain, stiffness, swelling Neurological: reports: numbness, weakness - Objective Allergies/Adverse Reactions: Allergies Allergy/AdvReac Type Severity Reaction Status Date / Time No Known Allergies Allergy Unverified 11/02/19 07:56 Visit Medications: Current Medications Acetaminophen/Codeine Phosphate (Tylenol #3) 1 tab PO Q4H PRN PRN Reason: M Acetaminophen/Codeine Phosphate (Tylenol #3) 2 tab PO Q4H PRN PRN Reason: Moderate Pain (4-6) Last Admin: 11/02/19 14:42 Dose: 2 tab Al Hydroxide/Mg Hydroxide (Maalox) 30 ml PO Q3H PRN PRN Reason: Heartburn or Indigestion Aspirin (Aspirin Chewable) 81 mg PO DAILY [facility] Last Admin: 11/07/19 05:56 Dose: 81 mg Atorvastatin Calcium (Lipitor) 40 mg PO HS [facility] Last Admin: 11/06/19 22:50 Dose: 40 mg Clonidine (Catapres) 0.1 mg PO Q2H PRN PRN Reason: SBP > 160 Famotidine (Pepcid) 20 mg PO BID [facility] Last Admin: 11/07/19 05:56 Dose: 20 mg Furosemide (Lasix) 20 mg PO DAILY [facility] Last Admin: 11/07/19 05:57 Dose: Not Given Lorazepam (Ativan) 1 mg SLOW IVP Q4H PRN PRN Reason: Anxiety/Agitation Last Admin: 11/02/19 22:15 Dose: 1 mg Magnesium Hydroxide (Milk Of Magnesium) 30 ml PO Q12H PRN PRN Reason: Constipation Morphine Sulfate (Morphine) 2 mg SLOW IVP Q4H PRN PRN Reason: Moderate Pain (4-6) Last Admin: 11/02/19 11:44 Dose: 2 mg Morphine Sulfate (Morphine) 4 mg IV Q4H PRN PRN Reason: Severe Pain (7-10) Nitroglycerin (Nitrostat) 0.4 mg SL Q5MIN PRN PRN Reason: Chest Pain Potassium Chloride (Klor-Con 10) 10 meq [facility] Last Admin: 11/07/19 05:56 Dose: 10 meq Sacubitril/Valsartan (Entresto 24 Mg-26 Mg Tablet) 0.5 tab PO BID JF Sacubitril/Valsartan (Entresto 24.5 Mg-25.5 Mg Tablet) 1 tab PO BID JF Sodium Chloride (Flush - Normal Saline) 10 ml IVF Q12HR JF Last Admin: 11/07/19 05:57 Dose: 10 ml Sodium Chloride (Flush - Normal Saline) 10 ml IVF PRN PRN PRN Reason: Saline Flush Ticagrelor (Brilinta) 90 mg PO BID J[facility] Last Admin: 11/07/19 05:56 Dose: 90 mg Zolpidem Tartrate (Ambien) 5 mg PO HSPRN PRN PRN Reason: IMSOMNIA Last Admin: 11/02/19 22:15 Dose: 5 mg Vital Signs & Weight: Vital Signs Temp Pulse Pulse Pulse Resp BP BP 11/07/19 15:23 97.6 F 68 18 11/07/19 11:13 97.8 F 65 18 11/07/19 10:32 69 64 118/69 115/66 11/07/19 07:29 98.1 F 69 18 11/07/19 05:55 57 L 11/07/19 03:55 97.7 F 57 L 14 BP Pulse Ox Pulse Ox Pulse Ox 11/07/19 15:23 101/64 95 11/07/19 11:13 112/69 94 L 11/07/19 10:32 93 L 94 L 11/07/19 07:29 117/70 95 11/07/19 05:55 11/07/19 03:55 118/58 L 99 Weight 194 lb - Quality Measures Condition: Myocardial Infarction CV meds: Beta Mary Alice: Yes, TRES/ARB: Yes, Statin: Yes, ASA: Yes - Physical Exam HEENT: normocephaly Neck: no JVD/HJR Cardiac: regular rate and rhythm, no murmur, regular rate Lungs: clear to auscultation, normal exam, no wheeze, rales, rhonchi Neuro: grossly intact Abdomen: unremarkable, active bowel sounds Extremities: no cyanosis, no clubbing, no edema Musculoskeletal: normal range of motion - Labs Result Diagrams: 11/07/19 11:47 11/06/19 05:57 Troponin/CKMB CK-MB (CK-2) 13.4 ng/mL (0-6.6) H* 11/02/19 05:18 Troponin I 221.704 ng/mL (< 0.028) H* 11/02/19 18:22 - Telemetry Sinus rhythms and dysrhythmias: sinus rhythm (occasional bradycardia on the monitor, none today. 1 episode of SVT 15 beats.) - Assessment/Plan Assessment/Plan: 1. CAD , s/p acute Anterior NH with s/p LHC on 11/02/2019 with TYLOR stent x 2 in prox and mid LAD and 80% stenosis in mid RCA, which underwent further intervention today ; On Lisinopril ( will switch to Entresto on Sunday AM, lisinopril last dose this AM), ASA, Lipitor and Brilinta; Coreg was stopped due to bradycardia, may resume at lower dose but BP is on the low side. 2. HLD - on Lipitor 40mg qd 3. Sleep apnea with Cpap 4. Bradycardia - He had some episodes of bradycardia with HR 30s since admission and occasionally while the pt was wake and during exercising with PT. Coreg has been on hold; Cath performed today with PTCA/Stent to the RCA. The bradycardia may be due to the RCA stenosis. After PTCA/Stent , if the HR does not stabilize he may eventually need a pacemaker or an AICD if the EF continues to be decreased. The EF at cath. today is 30-35% No V-tach since NH. MAR reviewed If he remains stable without bradycardia or arrhythmias probably can be d/c'd tomorrow. He needs to f/u with me in 2 weeks in the office.
[2019-11-07 18:02] LABS: #Basophils 0.1 thou/uL (0.0-0.2); #Eosinphils 0.1 thou/uL (0.0-0.7); #Lymphocytes 1.7 thou/uL (1.20-3.40); #Monocytes 0.8 thou/uL (0.11-0.59); #Neutrophils 7.1 thou/uL (1.40-6.50); %Basophils 0.5 % (0.0-1.0); %Eosinophils 0.8 % (0.0-10.0); %Lymphocytes 17.4 % (21.0-51.0); %Monocytes 7.9 % (0.0-10.0); %Neutrophils 73.3 % (42.0-75.0); Hemoglobin 15.1 g/dL (14.0-18.0); Mean Corpuscular HGB CONC 34.7 g/dL (32.0-36.0); Mean Corpuscular Hemoglobin 33.6 pg (27.0-31.0); Mean Corpuscular Volume 96.8 fL (78.0-98.0); Mean Platelet Volume 7.9 fL (7.4-10.4); Platelet Count 290 thou/uL (130-400); RBC Distribution Width 11.1 % (11.5-14.5); Red Blood Cell (RBC) Count 4.49 mill/uL (4.70-6.10); White Blood Cell (WBC) Count 9.7 thou/uL (4.8-10.8)
[2019-11-07] MEDS: Atorvastatin Calcium 40 MG TAB PO SCH (20:27)
[2019-11-07 23:52] LABS: #Basophils 0.1 thou/uL (0.0-0.2); #Eosinphils 0.1 thou/uL (0.0-0.7); #Lymphocytes 1.8 thou/uL (1.20-3.40); #Monocytes 0.8 thou/uL (0.11-0.59); #Neutrophils 5.9 thou/uL (1.40-6.50); %Basophils 0.8 % (0.0-1.0); %Lymphocytes 20.6 % (21.0-51.0); %Monocytes 9.7 % (0.0-10.0); %Neutrophils 67.9 % (42.0-75.0); Hemoglobin 14.9 g/dL (14.0-18.0); Mean Corpuscular HGB CONC 34.3 g/dL (32.0-36.0); Mean Corpuscular Hemoglobin 33.5 pg (27.0-31.0); Mean Corpuscular Volume 97.5 fL (78.0-98.0); Mean Platelet Volume 7.9 fL (7.4-10.4); Platelet Count 291 thou/uL (130-400); RBC Distribution Width 11.1 % (11.5-14.5); Red Blood Cell (RBC) Count 4.46 mill/uL (4.70-6.10); White Blood Cell (WBC) Count 8.7 thou/uL (4.8-10.8)
[2019-11-08 04:34] LABS: #Eosinphils 0.1 thou/uL (0.0-0.7); #Lymphocytes 1.8 thou/uL (1.20-3.40); #Monocytes 0.9 thou/uL (0.11-0.59); #Neutrophils 6.4 thou/uL (1.40-6.50); %Basophils 0.2 % (0.0-1.0); %Eosinophils 1.3 % (0.0-10.0); %Lymphocytes 19.6 % (21.0-51.0); %Monocytes 9.3 % (0.0-10.0); %Neutrophils 69.7 % (42.0-75.0); Hemoglobin 14.9 g/dL (14.0-18.0); Mean Corpuscular HGB CONC 34.1 g/dL (32.0-36.0); Mean Corpuscular Hemoglobin 32.9 pg (27.0-31.0); Mean Corpuscular Volume 96.5 fL (78.0-98.0); Mean Platelet Volume 7.9 fL (7.4-10.4); Platelet Count 287 thou/uL (130-400); Red Blood Cell (RBC) Count 4.53 mill/uL (4.70-6.10); White Blood Cell (WBC) Count 9.2 thou/uL (4.8-10.8)
[2019-11-08 04:38] LABS: Hemoglobin A1c 5.1 % (4.0-6.0)
[2019-11-08 04:54] LABS: ALT (SGPT) 37 U/L (8-55); AST (SGOT) 37 U/L (5-34); Albumin 3.7 g/dL (3.4-4.8); Alkaline Phosphatase 55 U/L (40-110); Anion Gap 14 mmol/L (10-20); BUN (Urea Nitrogen) 27 mg/dL (8.4-25.7); Bilirubin, Total 0.9 mg/dL (0.2-1.2); Calc. Creatinine Clearance 65 mL/min (70-130); Calcium 9.1 mg/dL (7.8-10.44); Carbon Dioxide 24 mmol/L (23-31); Chloride 106 mmol/L (98-107); Estimated GFR-MDRD 56; Globulin 2.7 g/dL (2.4-3.5); Glucose 100 mg/dL (83-110); Potassium 3.9 mmol/L (3.5-5.1); Protein, Total 6.4 g/dL (5.8-8.1); Sodium 140 mmol/L (136-145)
[2019-11-08 06:40] LABS: #Eosinphils 0.1 thou/uL (0.0-0.7); #Lymphocytes 1.3 thou/uL (1.20-3.40); #Monocytes 0.8 thou/uL (0.11-0.59); #Neutrophils 6.1 thou/uL (1.40-6.50); %Basophils 0.3 % (0.0-1.0); %Eosinophils 1.5 % (0.0-10.0); %Lymphocytes 15.8 % (21.0-51.0); %Monocytes 9.4 % (0.0-10.0); Hemoglobin 13.5 g/dL (14.0-18.0); Mean Corpuscular Hemoglobin 32.9 pg (27.0-31.0); Mean Corpuscular Volume 96.6 fL (78.0-98.0); Mean Platelet Volume 7.9 fL (7.4-10.4); Platelet Count 252 thou/uL (130-400); Red Blood Cell (RBC) Count 4.09 mill/uL (4.70-6.10); White Blood Cell (WBC) Count 8.3 thou/uL (4.8-10.8)
[2019-11-08] MEDS: Aspirin Chewable 81 MG TAB PO SCH (09:35)
[2019-11-08] MEDS: Potassium Chloride 10 MEQ TAB PO SCH (09:35)
[2019-11-08] MEDS: Famotidine 20 MG TAB PO SCH ×2 (09:36→21:00)
[2019-11-08] MEDS: Furosemide 20 MG TAB PO SCH (09:36)
[2019-11-08] MEDS: TICAGRELOR 90 MG TABLET PO SCH ×2 (09:36→20:57)
[2019-11-08 14:26] LABS: #Eosinphils 0.1 thou/uL (0.0-0.7); #Lymphocytes 1.4 thou/uL (1.20-3.40); #Monocytes 0.7 thou/uL (0.11-0.59); #Neutrophils 5.5 thou/uL (1.40-6.50); %Basophils 0.2 % (0.0-1.0); %Eosinophils 1.8 % (0.0-10.0); %Lymphocytes 18.5 % (21.0-51.0); %Monocytes 8.8 % (0.0-10.0); %Neutrophils 70.7 % (42.0-75.0); Mean Corpuscular HGB CONC 34.4 g/dL (32.0-36.0); Mean Corpuscular Hemoglobin 33.1 pg (27.0-31.0); Mean Corpuscular Volume 96.2 fL (78.0-98.0); Mean Platelet Volume 7.8 fL (7.4-10.4); Platelet Count 285 thou/uL (130-400); Red Blood Cell (RBC) Count 4.23 mill/uL (4.70-6.10); White Blood Cell (WBC) Count 7.8 thou/uL (4.8-10.8)
[2019-11-08 18:21] LABS: #Eosinphils 0.2 thou/uL (0.0-0.7); #Lymphocytes 1.4 thou/uL (1.20-3.40); #Monocytes 0.6 thou/uL (0.11-0.59); %Basophils 0.3 % (0.0-1.0); %Eosinophils 2.2 % (0.0-10.0); %Lymphocytes 19.1 % (21.0-51.0); %Monocytes 8.7 % (0.0-10.0); %Neutrophils 69.6 % (42.0-75.0); Hemoglobin 13.9 g/dL (14.0-18.0); Mean Corpuscular HGB CONC 34.2 g/dL (32.0-36.0); Mean Corpuscular Hemoglobin 32.7 pg (27.0-31.0); Mean Corpuscular Volume 95.7 fL (78.0-98.0); Mean Platelet Volume 7.4 fL (7.4-10.4); Platelet Count 250 thou/uL (130-400); Red Blood Cell (RBC) Count 4.25 mill/uL (4.70-6.10); White Blood Cell (WBC) Count 7.2 thou/uL (4.8-10.8)
--- NOTE | 2019-11-08 20:32 | PDOC.CPN ---
- Subjective Date: 11/08/19 Time: 20:30 Interval history: No new issues. No angina. - Review of Systems General: denies: fever/chills, weight/appetite/sleep changes, night sweats, fatigue Respiratory: denies: cough, congestion, shortness of breath, exercise intolerance Cardiovascular: denies: chest pain, palpitation, edema, paroxysmal nocturnal dyspnea, orthopnea Gastrointestinal: denies: nausea, vomiting, diarrhea, constipation, abd pain, GI bleeding Musculoskeletal: denies: pain, tenderness, stiffness, swelling, arthritis/ arthralgias Neurological: denies: numbness, syncope, seizure, weakness - Objective Allergies/Adverse Reactions: Allergies Allergy/AdvReac Type Severity Reaction Status Date / Time No Known Allergies Allergy Unverified 11/02/19 07:56 Visit Medications: Current Medications Acetaminophen/Codeine Phosphate (Tylenol #3) 1 tab PO Q4H PRN PRN Reason: M Acetaminophen/Codeine Phosphate (Tylenol #3) 2 tab PO Q4H PRN PRN Reason: Moderate Pain (4-6) Last Admin: 11/02/19 14:42 Dose: 2 tab Al Hydroxide/Mg Hydroxide (Maalox) 30 ml PO Q3H PRN PRN Reason: Heartburn or Indigestion Aspirin (Aspirin Chewable) 81 mg PO DAILY [facility] Last Admin: 11/08/19 09:35 Dose: 81 mg Atorvastatin Calcium (Lipitor) 40 mg PO HS [facility] Last Admin: 11/07/19 20:27 Dose: 40 mg Clonidine (Catapres) 0.1 mg PO Q2H PRN PRN Reason: SBP > 160 Famotidine (Pepcid) 20 mg PO BID [facility] Last Admin: 11/08/19 09:36 Dose: 20 mg Furosemide (Lasix) 20 mg PO DAILY [facility] Last Admin: 11/08/19 09:36 Dose: 20 mg Lorazepam (Ativan) 1 mg SLOW IVP Q4H PRN PRN Reason: Anxiety/Agitation Last Admin: 11/02/19 22:15 Dose: 1 mg Magnesium Hydroxide (Milk Of Magnesium) 30 ml PO Q12H PRN PRN Reason: Constipation Morphine Sulfate (Morphine) 2 mg SLOW IVP Q4H PRN PRN Reason: Moderate Pain (4-6) Last Admin: 11/02/19 11:44 Dose: 2 mg Morphine Sulfate (Morphine) 4 mg IV Q4H PRN PRN Reason: Severe Pain (7-10) Nitroglycerin (Nitrostat) 0.4 mg SL Q5MIN PRN PRN Reason: Chest Pain Potassium Chloride (Klor-Con 10) 10 meq PO QAM-WM [facility] Last Admin: 11/08/19 09:35 Dose: 10 meq Sacubitril/Valsartan (Entresto 24 Mg-26 Mg Tablet) 0.5 tab PO BID JF Sodium Chloride (Flush - Normal Saline) 10 ml IVF Q12HR JF Last Admin: 11/08/19 09:36 Dose: 10 ml Sodium Chloride (Flush - Normal Saline) 10 ml IVF PRN PRN PRN Reason: Saline Flush Ticagrelor (Brilinta) 90 mg PO BID JF Last Admin: 11/08/19 09:36 Dose: 90 mg Zolpidem Tartrate (Ambien) 5 mg PO HSPRN PRN PRN Reason: IMSOMNIA Last Admin: 11/02/19 22:15 Dose: 5 mg Vital Signs & Weight: Vital Signs Temp Pulse Pulse Pulse Resp BP BP 11/08/19 16:22 98.8 F 85 16 11/08/19 12:43 68 68 131/77 120/70 11/08/19 11:22 98.3 F 75 28 H BP Pulse Ox Pulse Ox 11/08/19 16:22 104/67 95 11/08/19 12:43 97 11/08/19 11:22 109/65 95 Weight 194 lb - Quality Measures Condition: Myocardial Infarction CV meds: Beta Mary Alice: Yes, TRES/ARB: Yes, Statin: Yes, ASA: Yes - Physical Exam General: alert & oriented x3 HEENT: mucus membranes moist Neck: supple neck Cardiac: regular rate and rhythm Lungs: clear to auscultation Neuro: grossly intact Abdomen: active bowel sounds Extremities: no edema Skin: clear Musculoskeletal: no pain - Labs Result Diagrams: 11/08/19 18:15 11/08/19 04:23 Troponin/CKMB CK-MB (CK-2) 13.4 ng/mL (0-6.6) H* 11/02/19 05:18 Troponin I 221.704 ng/mL (< 0.028) H* 11/02/19 18:22 - Telemetry Sinus rhythms and dysrhythmias: sinus rhythm - Assessment/Plan Assessment/Plan: 1. Acute anterior STEMI 2. Bradycaerdia prompting staged RCA stenting. 3. Sleep apnea. 4. Ischemic CM EF at 35-40% PLAn: - Home tomorrow if he remains stable.
[2019-11-08] MEDS: Atorvastatin Calcium 40 MG TAB PO SCH (21:00)
[2019-11-08 23:56] LABS: #Eosinphils 0.2 thou/uL (0.0-0.7); #Lymphocytes 1.4 thou/uL (1.20-3.40); #Monocytes 0.8 thou/uL (0.11-0.59); #Neutrophils 5.6 thou/uL (1.40-6.50); %Basophils 0.1 % (0.0-1.0); %Eosinophils 1.9 % (0.0-10.0); %Lymphocytes 17.2 % (21.0-51.0); %Monocytes 9.6 % (0.0-10.0); Hemoglobin 13.1 g/dL (14.0-18.0); Mean Corpuscular Hemoglobin 31.6 pg (27.0-31.0); Mean Corpuscular Volume 95.7 fL (78.0-98.0); Mean Platelet Volume 7.6 fL (7.4-10.4); Platelet Count 245 thou/uL (130-400); Red Blood Cell (RBC) Count 4.15 mill/uL (4.70-6.10); White Blood Cell (WBC) Count 7.9 thou/uL (4.8-10.8)
[2019-11-09 06:34] LABS: #Basophils 0.1 thou/uL (0.0-0.2); #Eosinphils 0.2 thou/uL (0.0-0.7); #Lymphocytes 1.4 thou/uL (1.20-3.40); #Monocytes 0.7 thou/uL (0.11-0.59); #Neutrophils 5.3 thou/uL (1.40-6.50); %Basophils 0.7 % (0.0-1.0); %Eosinophils 2.2 % (0.0-10.0); %Lymphocytes 18.5 % (21.0-51.0); %Monocytes 8.9 % (0.0-10.0); %Neutrophils 69.7 % (42.0-75.0); Hemoglobin 13.5 g/dL (14.0-18.0); Mean Corpuscular HGB CONC 34.1 g/dL (32.0-36.0); Mean Corpuscular Hemoglobin 32.8 pg (27.0-31.0); Mean Corpuscular Volume 96.1 fL (78.0-98.0); Platelet Count 251 thou/uL (130-400); RBC Distribution Width 10.9 % (11.5-14.5); Red Blood Cell (RBC) Count 4.11 mill/uL (4.70-6.10); White Blood Cell (WBC) Count 7.6 thou/uL (4.8-10.8)
[2019-11-09] MEDS: Potassium Chloride 10 MEQ TAB PO SCH (08:56)
[2019-11-09] MEDS: Aspirin Chewable 81 MG TAB PO SCH (08:56)
[2019-11-09] MEDS: Furosemide 20 MG TAB PO SCH (08:56)
[2019-11-09] MEDS: Famotidine 20 MG TAB PO SCH (08:56)
[2019-11-09] MEDS: TICAGRELOR 90 MG TABLET PO SCH (08:57)
[2019-11-09] MEDS ORDERED: Sacubitril 24.5 MG/Valsartan 25.5 MG TABLET PO SCH (09:00)
[2019-11-09 13:28] LABS: #Eosinphils 0.1 thou/uL (0.0-0.7); #Lymphocytes 1.3 thou/uL (1.20-3.40); #Monocytes 0.9 thou/uL (0.11-0.59); #Neutrophils 5.5 thou/uL (1.40-6.50); %Basophils 0.4 % (0.0-1.0); %Eosinophils 1.2 % (0.0-10.0); %Lymphocytes 16.7 % (21.0-51.0); %Monocytes 11.8 % (0.0-10.0); %Neutrophils 69.9 % (42.0-75.0); Hemoglobin 13.6 g/dL (14.0-18.0); Mean Corpuscular HGB CONC 33.7 g/dL (32.0-36.0); Mean Corpuscular Hemoglobin 32.4 pg (27.0-31.0); Mean Corpuscular Volume 95.9 fL (78.0-98.0); Mean Platelet Volume 7.6 fL (7.4-10.4); Platelet Count 290 thou/uL (130-400); RBC Distribution Width 10.9 % (11.5-14.5); Red Blood Cell (RBC) Count 4.21 mill/uL (4.70-6.10); White Blood Cell (WBC) Count 7.9 thou/uL (4.8-10.8)
[2019-11-09 16:12] VITALS: BP 93/57; TEMP 97.5
--- NOTE | 2019-11-09 21:48 | DIS ---
DATE OF ADMISSION: 11/02/2019 DATE OF DISCHARGE: 11/09/2019 DISCHARGING PHYSICIAN: Lorne Ontiveros MD PROCEDURE PERFORMED: Left heart catheterization with stenting to the LAD. Brought back a few days later for stent to the RCA secondary to bradycardia. Echocardiogram. HOSPITAL COURSE: Mr. Ling is a pleasant 74-year-old white gentleman, who came to the hospital for an anterior MO. He had an emergent cardiac catheterization and received a drug-eluting stent to the LAD. He had residual 80% stenosis. He was bradycardic during the next few days and the bradycardia would not improve, so he was brought back to do an RCA stent, which was extremely difficult to do, but successfully done by Dr. Medina. His EF was about 35% to 40%, so a LifeVest was not ordered. He was doing well, asymptomatic, tolerating all his medications. On the day of discharge, he was doing well without any angina, he was walking around the halls with physical therapy without any issues. Family is in the room. We spoke about the situation and he is ready to go home. Laboratory work was reviewed on the day of discharge. DISCHARGE MEDICATIONS: Reviewed. Brilinta and aspirin were sent prescription frazier, Entresto very low dose, and he was kept on his home dose of rosuvastatin. FOLLOWUP: Followup appointments with Dr. Medina in 2 to 4 weeks. TIME SPENT: Over 30 minutes was spent at bedside counseling for discharge. Job ID: [id number]
== END 2019-11-09 19:17 | disposition home or self-care (01) | DRG 246 ==
LOC: ERS 05:11 → CCU 05:29 → SDC/OP 06:06 → CCU 06:32 → 2NO 11-04 15:50
PROVIDERS: ADMIT Internal Medicine Cardiovascular Disease; ATTEND Internal Medicine Cardiovascular Disease
PROC: 027135Z Dilation of Coronary Artery, Two Arteries with Two Drug-eluting Intraluminal Devices, Percutaneous Approach (ICD-10-PCS; principal; 2019-11-02)
PROC: 4A023N7 Measurement of Cardiac Sampling and Pressure, Left Heart, Percutaneous Approach (ICD-10-PCS; 2019-11-02)
PROC: B2111ZZ Fluoroscopy of Multiple Coronary Arteries using Low Osmolar Contrast (ICD-10-PCS; 2019-11-02)
PROC: B2151ZZ Fluoroscopy of Left Heart using Low Osmolar Contrast (ICD-10-PCS; 2019-11-02)
DX: I21.09 ST elevation (STEMI) myocardial infarction involving other coronary artery of anterior wall (principal); J96.01 Acute respiratory failure with hypoxia; R00.1 Bradycardia, unspecified; I10 Essential (primary) hypertension; E78.5 Hyperlipidemia, unspecified; E78.00 Pure hypercholesterolemia, unspecified; I25.10 Atherosclerotic heart disease of native coronary artery without angina pectoris; G47.33 Obstructive sleep apnea (adult) (pediatric); I25.5 Ischemic cardiomyopathy; R94.5 Abnormal results of liver function studies
CPT/HCPCS: 36415; 36416; 71045; 80053; 80061; 80076; 82550; 82553; 83036; 83690; 83735; 84132; 84484; 85025; 85347; 85610; 85730; 92928; 93005; 93010; 93306; 93458; 93798; 94760; 96374; 99152; 99153; C1769; C1874; C1887; C9600; J0461; J1644; J1940; J2060; J2250; J2270; J3010; J3246; Q9967

== ENCOUNTER 2021-02-08 09:36 | Inpatient (IN) | payer OTHER, MEDICARE ==
[2021-02-08 10:25] LABS: #Lymphocytes 0.5 thou/uL (1.20-3.40); #Monocytes 0.3 thou/uL (0.11-0.59); #Neutrophils 3.9 thou/uL (1.40-6.50); %Eosinophils 0.6 % (0.0-10.0); %Lymphocytes 10.9 % (21.0-51.0); %Monocytes 5.6 % (0.0-10.0); %Neutrophils 82.9 % (42.0-75.0); Hemoglobin 14.4 g/dL (14.0-18.0); Mean Corpuscular HGB CONC 34.7 g/dL (32.0-36.0); Mean Corpuscular Hemoglobin 34.1 pg (27.0-31.0); Mean Corpuscular Volume 98.2 fL (78.0-98.0); Mean Platelet Volume 8.1 fL (7.4-10.4); Platelet Count 145 thou/uL (130-400); RBC Distribution Width 10.9 % (11.5-14.5); Red Blood Cell (RBC) Count 4.21 mill/uL (4.70-6.10); White Blood Cell (WBC) Count 4.7 thou/uL (4.8-10.8)
[2021-02-08 10:44] LABS: ALT (SGPT) 20 U/L (8-55); AST (SGOT) 23 U/L (5-34); Albumin 4.1 g/dL (3.4-4.8); Alkaline Phosphatase 69 U/L (40-110); Anion Gap 16 mmol/L (10-20); BUN (Urea Nitrogen) 25 mg/dL (8.4-25.7); Bilirubin, Total 1.3 mg/dL (0.2-1.2); CK (CPK) 124 U/L (30-200); Calc. Creatinine Clearance 0 mL/min (70-130); Calcium 8.8 mg/dL (7.8-10.44); Carbon Dioxide 26 mmol/L (23-31); Chloride 101 mmol/L (98-107); Globulin 2.3 g/dL (2.4-3.5); Glucose 130 mg/dL (83-110); Potassium 3.7 mmol/L (3.5-5.1); Protein, Total 6.4 g/dL (5.8-8.1); Sodium 139 mmol/L (136-145)
[2021-02-08] MEDS ORDERED: Heparin 10,000 UNITS/ 10 ML VIAL ONE ×2 (12:43→15:36)
[2021-02-08 12:46] LABS: SARS-CoV-2 NAA Rapid Test DETECTED (NotDetected)
[2021-02-08 12:53] LABS: PTT 31.5 sec (22.9-36.1); Prothrombin Time 13.6 sec (12.0-14.7)
[2021-02-08] MEDS ORDERED: Fentanyl 100 MCG/2 ML VIAL ONE (13:44)
[2021-02-08] MEDS ORDERED: Phenylephrine 10 MG/ML VIAL ONE (13:44)
[2021-02-08] MEDS ORDERED: Lidocaine 1% PF 5 ML VIAL ONE (14:20)
[2021-02-08] MEDS ORDERED: Dexamethasone 20 MG/5 ML VIAL ONE (14:20)
[2021-02-08] MEDS ORDERED: PROPOFOL 200 MG/20 ML VIAL ONE (14:20)
[2021-02-08] MEDS ORDERED: ePHEDrine Sulfate 50 MG/10 ML VIAL ONE (14:20)
[2021-02-08] MEDS ORDERED: Rocuronium Bromide 10 MG/ML (10ML VIAL) ONE (14:20)
[2021-02-08] MEDS ORDERED: Ondansetron PF 4 MG/2 ML Vial ONE (14:20)
[2021-02-08] MEDS ORDERED: Fentanyl 100 MCG/2 ML VIAL SLOW IVP PRN (17:44)
[2021-02-08] MEDS ORDERED: Promethazine HCl 25 MG/ML VIAL IM PRN (17:47)
[2021-02-08] MEDS ORDERED: Ondansetron HCl/PF 4 MG/2 ML Vial IVP PRN (17:47)
[2021-02-08] MEDS ORDERED: Promethazine HCl 25 MG/ML VIAL SLOW IVP PRN (17:47)
[2021-02-08] MEDS ORDERED: Ondansetron PF 4 MG/2 ML Vial IVP PRN (20:16)
[2021-02-08] MEDS ORDERED: Acetaminophen 325 MG TAB PO PRN (20:16)
[2021-02-08] MEDS ORDERED: HYDROcodone/Acetaminophen 5/325 mg Tablet PO PRN (20:16)
[2021-02-08] MEDS ORDERED: Zolpidem Tartrate 5 MG TAB PO PRN (20:16)
[2021-02-09 05:22] LABS: #Lymphocytes 0.6 thou/uL (1.20-3.40); #Monocytes 0.4 thou/uL (0.11-0.59); #Neutrophils 5.6 thou/uL (1.40-6.50); %Eosinophils 0.1 % (0.0-10.0); %Lymphocytes 9.3 % (21.0-51.0); %Monocytes 6.1 % (0.0-10.0); %Neutrophils 84.6 % (42.0-75.0); Hemoglobin 13.2 g/dL (14.0-18.0); Mean Corpuscular HGB CONC 34.4 g/dL (32.0-36.0); Mean Corpuscular Hemoglobin 33.8 pg (27.0-31.0); Mean Corpuscular Volume 98.4 fL (78.0-98.0); Mean Platelet Volume 7.9 fL (7.4-10.4); Platelet Count 151 thou/uL (130-400); RBC Distribution Width 11.1 % (11.5-14.5); Red Blood Cell (RBC) Count 3.92 mill/uL (4.70-6.10); White Blood Cell (WBC) Count 6.6 thou/uL (4.8-10.8)
[2021-02-09 05:42] LABS: Anion Gap 13 mmol/L (10-20); BUN (Urea Nitrogen) 22 mg/dL (8.4-25.7); Calc. Creatinine Clearance 67 mL/min (70-130); Calcium 8.1 mg/dL (7.8-10.44); Carbon Dioxide 23 mmol/L (23-31); Chloride 105 mmol/L (98-107); Glucose 130 mg/dL (83-110); Sodium 137 mmol/L (136-145)
[2021-02-09] MEDS: Aspirin Chewable 81 MG TAB PO SCH (08:17)
[2021-02-09] MEDS: Potassium Chloride 20 MEQ TAB PO SCH (08:17)
[2021-02-09] MEDS: Furosemide 20 MG TAB PO SCH (08:18)
[2021-02-09] MEDS: Atorvastatin Calcium 40 MG TAB PO SCH (08:18)
[2021-02-09] MEDS ORDERED: Apixaban 2.5 MG TAB PO SCH (09:00)
[2021-02-09] MEDS: Apixaban 5 MG TAB PO SCH (20:09)
[2021-02-10 05:28] LABS: Hemoglobin 11.8 g/dL (14.0-18.0); Platelet Count 153 thou/uL (130-400)
[2021-02-10] MEDS: Atorvastatin Calcium 40 MG TAB PO SCH (09:28)
[2021-02-10] MEDS: Potassium Chloride 20 MEQ TAB PO SCH (09:28)
[2021-02-10] MEDS: Furosemide 20 MG TAB PO SCH (09:28)
[2021-02-10] MEDS: Apixaban 5 MG TAB PO SCH ×4 (09:28→22:49)
[2021-02-10] MEDS: Aspirin Chewable 81 MG TAB PO SCH (09:28)
[2021-02-10] MEDS ORDERED: Iopamidol-370 76% 500 ML 1 ML ONE (09:43)
[2021-02-10] MEDS ORDERED: Dronedarone HCl 400 MG TAB PO SCH (10:45)
[2021-02-10] MEDS ORDERED: Digoxin 0.5 MG/2 ML AMP SLOW IVP SCH (10:45)
[2021-02-10] MEDS ORDERED: Diltiazem 125 MG in Sodium Chloride 0.9% 100 ML IVPB SCH (13:45)
[2021-02-10] MEDS: Digoxin 0.5 MG/2 ML AMP SLOW IVP SCH ×2 (16:43→22:51)
[2021-02-10] MEDS: Dronedarone HCl 400 MG TAB PO SCH (16:44)
[2021-02-10 20:18] LABS: #Basophils 0.1 thou/uL (0.0-0.2); #Lymphocytes 1.1 thou/uL (1.20-3.40); #Monocytes 0.5 thou/uL (0.11-0.59); #Neutrophils 4.8 thou/uL (1.40-6.50); %Eosinophils 0.1 % (0.0-10.0); %Lymphocytes 16.8 % (21.0-51.0); %Monocytes 7.2 % (0.0-10.0); %Neutrophils 74.9 % (42.0-75.0); Hemoglobin 13.4 g/dL (14.0-18.0); Mean Corpuscular HGB CONC 34.1 g/dL (32.0-36.0); Mean Corpuscular Hemoglobin 33.1 pg (27.0-31.0); Mean Corpuscular Volume 97.2 fL (78.0-98.0); Platelet Count 175 thou/uL (130-400); RBC Distribution Width 11.1 % (11.5-14.5); Red Blood Cell (RBC) Count 4.06 mill/uL (4.70-6.10); White Blood Cell (WBC) Count 6.3 thou/uL (4.8-10.8)
[2021-02-10 20:29] LABS: INR-International Normal Ratio 1.1; PTT 41.6 sec (22.9-36.1); Prothrombin Time 14.8 sec (12.0-14.7)
[2021-02-10 21:02] LABS: AST (SGOT) 32 U/L (5-34); Albumin 3.7 g/dL (3.4-4.8); Alkaline Phosphatase 63 U/L (40-110); Anion Gap 15 mmol/L (10-20); BUN (Urea Nitrogen) 21 mg/dL (8.4-25.7); CK (CPK) 308 U/L (30-200); CKMB 2.8 ng/mL (0-6.6); Calc. Creatinine Clearance 68 mL/min (70-130); Carbon Dioxide 22 mmol/L (23-31); Chloride 104 mmol/L (98-107); Globulin 1.9 g/dL (2.4-3.5); Glucose 116 mg/dL (83-110); Protein, Total 5.6 g/dL (5.8-8.1); Sodium 137 mmol/L (136-145)
[2021-02-10 22:53] LABS: ALT (SGPT) 18 U/L (8-55)
[2021-02-11] MEDS: Dronedarone HCl 400 MG TAB PO SCH ×2 (09:36→16:22)
[2021-02-11] MEDS: Atorvastatin Calcium 40 MG TAB PO SCH (09:36)
[2021-02-11] MEDS: Digoxin 0.25 MG TAB PO SCH (09:36)
[2021-02-11] MEDS: Apixaban 5 MG TAB PO SCH ×2 (09:36→20:35)
[2021-02-11] MEDS: Furosemide 20 MG TAB PO SCH (09:36)
[2021-02-11] MEDS: Aspirin Chewable 81 MG TAB PO SCH (09:36)
[2021-02-11] MEDS: Potassium Chloride 20 MEQ TAB PO SCH (09:37)
[2021-02-11] MEDS ORDERED: Magnevist 469MG/ML 20 ML VIAL ONE (10:08)
[2021-02-12] MEDS: Digoxin 0.25 MG TAB PO SCH (08:55)
[2021-02-12] MEDS: Apixaban 5 MG TAB PO SCH (08:56)
[2021-02-12] MEDS: Dronedarone HCl 400 MG TAB PO SCH ×2 (08:56→16:08)
[2021-02-12] MEDS: Atorvastatin Calcium 40 MG TAB PO SCH (08:56)
[2021-02-12] MEDS: Potassium Chloride 20 MEQ TAB PO SCH (08:56)
[2021-02-12] MEDS: Furosemide 20 MG TAB PO SCH (08:56)
[2021-02-12] MEDS: Aspirin Chewable 81 MG TAB PO SCH (08:56)
[2021-02-12 11:18] LABS: Bilirubin Small (Negative); Blood, Urine Large (Negative); Clarity Hazy (Clear); Glucose, Urine (Dipstick) Negative (Negative); Ketone, Urine Trace mg/dL (Negative); Leukocyte Negative (Negative); Nitrite Negative (Negative); Protein, Urine (Dipstick) Negative (Neg-Trace); Specific Gravity, Urine 1.025 (1.005-1.030)
[2021-02-12 11:22] LABS: RBC/HPF Greater than 50 HPF (0-3); Squamous Epithelial None Seen HPF (0-3)
[2021-02-12 11:33] LABS: Bacteria/HPF Rare-Few HPF (None Seen); WBC/HPF 0-3 HPF (0-3)
[2021-02-13 05:11] LABS: Hemoglobin 12.9 g/dL (14.0-18.0); Platelet Count 234 thou/uL (130-400)
[2021-02-13] MEDS: Aspirin Chewable 81 MG TAB PO SCH (10:00)
[2021-02-13] MEDS: Dronedarone HCl 400 MG TAB PO SCH ×2 (10:00→16:31)
[2021-02-13] MEDS: Atorvastatin Calcium 40 MG TAB PO SCH (10:00)
[2021-02-13] MEDS: Apixaban 5 MG TAB PO SCH ×2 (10:00→22:05)
[2021-02-13] MEDS: Potassium Chloride 20 MEQ TAB PO SCH (10:01)
[2021-02-13] MEDS: Furosemide 20 MG TAB PO SCH (10:01)
[2021-02-13] MEDS: Digoxin 0.25 MG TAB PO SCH (10:01)
[2021-02-14] MEDS: Furosemide 20 MG TAB PO SCH (11:14)
[2021-02-14] MEDS: Aspirin Chewable 81 MG TAB PO SCH (11:14)
[2021-02-14] MEDS: Apixaban 5 MG TAB PO SCH ×2 (11:14→21:11)
[2021-02-14] MEDS: Digoxin 0.25 MG TAB PO SCH (11:14)
[2021-02-14] MEDS: Dronedarone HCl 400 MG TAB PO SCH ×2 (11:14→18:22)
[2021-02-14] MEDS: Atorvastatin Calcium 40 MG TAB PO SCH (11:14)
[2021-02-14] MEDS: Potassium Chloride 20 MEQ TAB PO SCH (11:15)
[2021-02-14] MEDS ORDERED: Iopamidol 370 76% 100 ML VIAL ONE (13:44)
[2021-02-14 21:11] LABS: Bilirubin Negative (Negative); Blood, Urine Negative (Negative); Glucose, Urine (Dipstick) Negative (Negative); Ketone, Urine 15 mg/dL (Negative); Leukocyte Negative (Negative); Nitrite Negative (Negative); Protein, Urine (Dipstick) Negative (Neg-Trace); pH, Urine 5.5 (5.0-9.0)
[2021-02-14 21:20] LABS: Clarity Hazy (Clear); WBC/HPF 0-3 HPF (0-3)
[2021-02-14 21:39] LABS: Bacteria/HPF 1+ HPF (None Seen)
[2021-02-14 21:40] LABS: Mucous/LPF 1+ LPF (<2+); Squamous Epithelial 0-3 HPF (0-3)
[2021-02-14 21:41] LABS: Calcium Oxalate Crystals 1+ HPF (None Seen)
[2021-02-14 21:43] LABS: Urine Culture Reflex Yes Yes
[2021-02-15] MEDS: Digoxin 0.25 MG TAB PO SCH (07:59)
[2021-02-15] MEDS: Furosemide 20 MG TAB PO SCH (08:00)
[2021-02-15] MEDS: Apixaban 5 MG TAB PO SCH ×2 (08:00→20:49)
[2021-02-15] MEDS: Aspirin Chewable 81 MG TAB PO SCH (08:00)
[2021-02-15] MEDS: Dronedarone HCl 400 MG TAB PO SCH ×2 (08:00→17:17)
[2021-02-15] MEDS: Potassium Chloride 20 MEQ TAB PO SCH (08:00)
[2021-02-15] MEDS: Atorvastatin Calcium 40 MG TAB PO SCH (08:00)
[2021-02-15] MEDS ORDERED: Iopamidol 370 76% 100 ML VIAL ONE (13:28)
[2021-02-16 05:59] LABS: Hemoglobin 13.1 g/dL (14.0-18.0); Platelet Count 287 thou/uL (130-400)
[2021-02-16] MEDS: Digoxin 0.25 MG TAB PO SCH (08:13)
[2021-02-16] MEDS: Aspirin Chewable 81 MG TAB PO SCH (08:14)
[2021-02-16] MEDS: Atorvastatin Calcium 40 MG TAB PO SCH (08:14)
[2021-02-16] MEDS: Potassium Chloride 20 MEQ TAB PO SCH (08:14)
[2021-02-16] MEDS: Furosemide 20 MG TAB PO SCH (08:14)
[2021-02-16] MEDS: Dronedarone HCl 400 MG TAB PO SCH ×2 (08:14→16:06)
[2021-02-16] MEDS: Apixaban 5 MG TAB PO SCH ×2 (08:14→21:35)
[2021-02-16 13:05] VITALS: BMI 26.9
[2021-02-17] MEDS: Aspirin Chewable 81 MG TAB PO SCH (07:59)
[2021-02-17] MEDS: Digoxin 0.25 MG TAB PO SCH (07:59)
[2021-02-17] MEDS: Atorvastatin Calcium 40 MG TAB PO SCH (07:59)
[2021-02-17] MEDS: Potassium Chloride 20 MEQ TAB PO SCH (08:00)
[2021-02-17] MEDS: Furosemide 20 MG TAB PO SCH (08:00)
[2021-02-17] MEDS: Apixaban 5 MG TAB PO SCH ×2 (08:01→20:38)
[2021-02-17] MEDS: Dronedarone HCl 400 MG TAB PO SCH ×2 (08:01→16:37)
[2021-02-18] MEDS: Digoxin 0.25 MG TAB PO SCH (09:49)
[2021-02-18] MEDS: Amiodarone 200 MG TAB PO SCH (09:49)
[2021-02-18] MEDS: Potassium Chloride 20 MEQ TAB PO SCH (09:49)
[2021-02-18] MEDS: Aspirin Chewable 81 MG TAB PO SCH (09:49)
[2021-02-18] MEDS: Atorvastatin Calcium 40 MG TAB PO SCH (09:49)
[2021-02-18] MEDS: Apixaban 5 MG TAB PO SCH ×2 (09:50→19:47)
[2021-02-18] MEDS: Furosemide 20 MG TAB PO SCH (10:02)
[2021-02-19] MEDS: Amiodarone 200 MG TAB PO SCH (08:24)
[2021-02-19] MEDS: Potassium Chloride 20 MEQ TAB PO SCH (08:24)
[2021-02-19] MEDS: Atorvastatin Calcium 40 MG TAB PO SCH (08:24)
[2021-02-19] MEDS: Apixaban 5 MG TAB PO SCH (08:24)
[2021-02-19] MEDS: Furosemide 20 MG TAB PO SCH (08:25)
[2021-02-19] MEDS: Digoxin 0.25 MG TAB PO SCH (08:25)
[2021-02-19] MEDS: Aspirin Chewable 81 MG TAB PO SCH (08:25)
[2021-02-19 09:05] VITALS: BP 101/58; TEMP 97.4
== END 2021-02-19 09:35 | DRG 252 ==
LOC: ERS 09:36 → SDC 14:15 → 2SW 17:40
PROVIDERS: ADMIT Thoracic Surgery (Cardiothoracic Vascular Surgery); ATTEND Thoracic Surgery (Cardiothoracic Vascular Surgery)
PROC: 04CL0ZZ Extirpation of Matter from Left Femoral Artery, Open Approach (ICD-10-PCS; principal; 2021-02-08)
PROC: 04CN0ZZ Extirpation of Matter from Left Popliteal Artery, Open Approach (ICD-10-PCS; 2021-02-08)
PROC: 04CQ0ZZ Extirpation of Matter from Left Anterior Tibial Artery, Open Approach (ICD-10-PCS; 2021-02-08)
PROC: 04CU0ZZ Extirpation of Matter from Left Peroneal Artery, Open Approach (ICD-10-PCS; 2021-02-08)
PROC: 06U Lower Veins, Supplement (ICD-10-PCS; 2021-02-08)
DX: I74.3 Embolism and thrombosis of arteries of the lower extremities (principal); I63.531 Cerebral infarction due to unspecified occlusion or stenosis of right posterior cerebral artery; U07.1 COVID-19; J12.82 Pneumonia due to coronavirus disease 2019; I47.1 Supraventricular tachycardia; I25.5 Ischemic cardiomyopathy; E78.5 Hyperlipidemia, unspecified; E78.00 Pure hypercholesterolemia, unspecified; I10 Essential (primary) hypertension; I25.10 Atherosclerotic heart disease of native coronary artery without angina pectoris; I48.0 Paroxysmal atrial fibrillation; R42 Dizziness and giddiness; Z95.5 Presence of coronary angioplasty implant and graft; Z79.01 Long term (current) use of anticoagulants; Z79.82 Long term (current) use of aspirin; Z79.899 Other long term (current) drug therapy; I25.2 Old myocardial infarction; Z91.81 History of falling
CPT/HCPCS: 36415; 36416; 70450; 70496; 70498; 70553; 71260; 74178; 75635; 76000; 80048; 80053; 81001; 82550; 82553; 82565; 84484; 85014; 85018; 85025; 85049; 85610; 85730; 87077; 87086; 87186; 88304; 93005; 93010; 93306; 93923; 96374; A9579; J1100; J1160; J1642; J1644; J2370; J2405; J2704; J3010; Q9967; U0002; U0005

== ENCOUNTER 2021-06-02 10:57 | Outpatient (CLI) | payer OTHER | END 2021-06-02 10:58 | disposition home or self-care (01) | LOC: SCSRAD 10:57 | PROVIDERS: ATTEND Family Medicine | DX: R76.12 Nonspecific reaction to cell mediated immunity measurement of gamma interferon antigen response without active tuberculosis (principal); M19.011 Primary osteoarthritis, right shoulder; M19.012 Primary osteoarthritis, left shoulder; I28.8 Other diseases of pulmonary vessels; Z97.8 Presence of other specified devices | CPT/HCPCS: 71046 ==

== ENCOUNTER 2021-06-09 09:06 | Outpatient (CLI) | payer OTHER ==
[2021-06-09 10:48] LABS: Hemoglobin 15.4 g/dL (13.5-17.5); Mean Corpuscular HGB CONC 33.1 g/dL (32.0-36.0); Mean Corpuscular Hemoglobin 31.4 pg (27.0-33.0); Mean Corpuscular Volume 94.9 fl (81.2-95.1); Mean Platelet Volume 9.9 fl (7.4-10.4); Platelet Count 247 10x3/uL (150-450); RBC Distribution Width 12.3 % (11.5-14.5); White Blood Cell (WBC) Count 5.7 10x3/uL (3.5-10.5)
[2021-06-09 10:57] LABS: INR-International Normal Ratio 1.1; PTT 29.8 sec (22.0-33.0); Prothrombin Time 12.2 sec (9.5-12.1)
[2021-06-09 11:00] LABS: Anion Gap 14 mmol/L (10-20); BUN (Urea Nitrogen) 20 mg/dL (8.4-25.7); Calc. Creatinine Clearance 0 mL/min (70-130); Carbon Dioxide 23 mmol/L (23-31); Chloride 106 mmol/L (98-107); Glucose 98 mg/dL (83-110); Potassium 4.3 mmol/L (3.5-5.1); Sodium 139 mmol/L (136-145)
[2021-06-09 20:17] LABS: SARS-CoV-2 PCR by NAA Not Detected (NotDetected)
== END 2021-06-09 09:07 | disposition home or self-care (01) ==
LOC: LABBT 09:06
PROVIDERS: ATTEND Internal Medicine Cardiovascular Disease
DX: Z01.812 Encounter for preprocedural laboratory examination (principal); Z20.822 Contact with and (suspected) exposure to COVID-19
CPT/HCPCS: 80048; 85027; 85610; 85730; U0003; U0005

== ENCOUNTER 2021-06-14 07:14 | Observation (INO) | payer OTHER ==
[2021-06-10 15:04] VITALS: BMI 25.1
[2021-06-14] MEDS ORDERED: Gentamicin 80 MG/2 ML VIAL ONE (10:00)
[2021-06-14] MEDS ORDERED: CEFAZOLIN 1 GM VIAL ONE (10:00)
[2021-06-14] MEDS ORDERED: Lidocaine 1% (PF) 30 ML VIAL ONE (10:00)
[2021-06-14] MEDS ORDERED: Midazolam HCl 2 mg/2 ml Vial ONE (10:49)
[2021-06-14] MEDS ORDERED: Fentanyl 100 MCG/2 ML VIAL ONE (10:49)
[2021-06-14] MEDS ORDERED: Propofol 500 MG/50 ML VIAL ONE (10:50)
[2021-06-14] MEDS ORDERED: Ketamine 50 MG/ML (10ML VIAL) ONE (10:50)
[2021-06-14] MEDS ORDERED: Acetaminophen 500 MG TAB PO PRN (13:40)
[2021-06-14] MEDS ORDERED: hydrALAZINE 20 MG/ML VIAL SLOW IVP PRN (13:40)
[2021-06-14] MEDS ORDERED: HYDROcodone/Acetaminophen 5/325 mg Tablet PO PRN ×2 (13:41→13:42)
[2021-06-14] MEDS ORDERED: Docusate 100 MG CAP PO PRN (13:45)
[2021-06-14] MEDS ORDERED: Senokot 8.6 MG TAB PO PRN (13:47)
[2021-06-14] MEDS ORDERED: Polyethylene Glycol 3350 17 GM Packet PO PRN (13:48)
[2021-06-14] MEDS ORDERED: Iopamidol 370 76% 50 ML VIAL FS ONE (16:02)
[2021-06-14] MEDS ORDERED: FLU VACC QS2021-22(65YR UP)/PF 240 MCG/0.7 ML SYRINGE IM ONE (18:45)
[2021-06-14] MEDS ORDERED: CEFAZOLIN 2 GM in Premix Bag 1 BAG IVPB SCH (19:00)
[2021-06-14] MEDS: ceFAZolin Sodium/D5W 2 GM in Premix Bag 1 BAG IVPB SCH (20:18)
[2021-06-14] MEDS: Famotidine 20 MG TAB PO SCH (20:19)
[2021-06-14] MEDS ORDERED: Atorvastatin Calcium 40 MG TAB PO SCH (21:00)
[2021-06-14] MEDS ORDERED: Melatonin 3 MG TAB PO SCH (21:00)
[2021-06-15] MEDS: ceFAZolin Sodium/D5W 2 GM in Premix Bag 1 BAG IVPB SCH ×2 (04:09→09:46)
[2021-06-15] MEDS: Famotidine 20 MG TAB PO SCH (08:59)
[2021-06-15] MEDS ORDERED: Aspirin Chewable 81 MG TAB PO SCH (09:00)
[2021-06-15] MEDS ORDERED: Venlafaxine HCl 25 MG TAB PO SCH (09:00)
[2021-06-15 09:12] VITALS: TEMP 98.4
[2021-06-15 10:34] VITALS: BP 105/74
== END 2021-06-15 10:25 | disposition home or self-care (01) ==
LOC: SDC 07:14 → 2NO 09:07
PROVIDERS: ADMIT Internal Medicine Cardiovascular Disease; ATTEND Internal Medicine Cardiovascular Disease
PROC: 0JH608Z Insertion of Defibrillator Generator into Chest Subcutaneous Tissue and Fascia, Open Approach (ICD-10-PCS; principal; 2021-06-15)
PROC: 02H63KZ Insertion of Defibrillator Lead into Right Atrium, Percutaneous Approach (ICD-10-PCS; 2021-06-15)
PROC: 02HK3KZ Insertion of Defibrillator Lead into Right Ventricle, Percutaneous Approach (ICD-10-PCS; 2021-06-15)
DX: I25.5 Ischemic cardiomyopathy (principal); I47.2 Ventricular tachycardia; I11.0 Hypertensive heart disease with heart failure; I50.22 Chronic systolic (congestive) heart failure; I48.3 Typical atrial flutter; E78.5 Hyperlipidemia, unspecified; I25.10 Atherosclerotic heart disease of native coronary artery without angina pectoris; I25.2 Old myocardial infarction; I48.19 Other persistent atrial fibrillation; Z86.73 Personal history of transient ischemic attack (TIA), and cerebral infarction without residual deficits; Z79.01 Long term (current) use of anticoagulants; Z79.899 Other long term (current) drug therapy; Z95.5 Presence of coronary angioplasty implant and graft
CPT/HCPCS: 33249; 71045; 93005; 96365; 96366; 96376; C1721; C1777; C1898; G0378; J0690; J1580; J2001; J2250; J2704; J3010; Q9967

== ENCOUNTER 2021-11-07 14:44 | Outpatient (CLI) | payer OTHER, MEDICARE ==
[2021-11-07 16:58] LABS: Hemoglobin 15.6 g/dL (13.5-17.5); Mean Corpuscular HGB CONC 32.6 g/dL (32.0-36.0); Mean Corpuscular Hemoglobin 32.9 pg (27.0-33.0); Mean Corpuscular Volume 100.8 fl (81.2-95.1); Mean Platelet Volume 11.1 fl (7.4-10.4); Platelet Count 249 10x3/uL (150-450); RBC Distribution Width 13.7 % (11.5-14.5); Red Blood Cell (RBC) Count 4.74 10x6/uL (4.32-5.72); White Blood Cell (WBC) Count 7.5 10x3/uL (3.5-10.5)
[2021-11-07 17:22] LABS: INR-International Normal Ratio 1.1; Prothrombin Time 12.4 sec (9.5-12.1)
[2021-11-07 17:25] LABS: Anion Gap 19 mmol/L (10-20); BUN (Urea Nitrogen) 20 mg/dL (8.4-25.7); Calc. Creatinine Clearance 0 mL/min (70-130); Calcium 9.6 mg/dL (7.8-10.44); Carbon Dioxide 24 mmol/L (23-31); Chloride 107 mmol/L (98-107); Glucose 71 mg/dL (83-110); Potassium 5.7 mmol/L (3.5-5.1); Sodium 144 mmol/L (136-145)
[2021-11-08 03:28] LABS: SARS-CoV-2 PCR by NAA Not Detected (NotDetected)
== END 2021-11-07 14:45 | disposition home or self-care (01) ==
LOC: LABBT 14:44
PROVIDERS: ATTEND Internal Medicine Cardiovascular Disease
DX: Z01.812 Encounter for preprocedural laboratory examination (principal); I48.0 Paroxysmal atrial fibrillation; Z20.822 Contact with and (suspected) exposure to COVID-19
CPT/HCPCS: 80048; 85027; 85610; U0003; U0005

== ENCOUNTER 2022-06-15 15:57 | Inpatient (IN) | payer MEDICARE ==
[2022-06-15 16:33] LABS: #Lymphocytes 1.5 thou/uL (1.20-3.40); #Monocytes 0.5 thou/uL (0.11-0.59); #Neutrophils 7.6 thou/uL (1.40-6.50); %Basophils 0.2 % (0.0-1.0); %Eosinophils 0.3 % (0.0-10.0); %Lymphocytes 15.5 % (21.0-51.0); %Monocytes 5.4 % (0.0-10.0); %Neutrophils 78.5 % (42.0-75.0); Hemoglobin 16.3 g/dL (14.0-18.0); Mean Corpuscular HGB CONC 32.6 g/dL (32.0-36.0); Mean Corpuscular Hemoglobin 33.6 pg (27.0-31.0); Mean Platelet Volume 8.8 fL (7.4-10.4); Platelet Count 277 thou/uL (130-400); RBC Distribution Width 13.6 % (11.5-14.5); Red Blood Cell (RBC) Count 4.86 mill/uL (4.70-6.10); White Blood Cell (WBC) Count 9.7 thou/uL (4.8-10.8)
[2022-06-15 16:49] LABS: ALT (SGPT) 68 U/L (8-55); AST (SGOT) 61 U/L (5-34); Acetaminophen Less than 10.0 mcg/mL (10.0-30.0); Albumin 4.3 g/dL (3.4-4.8); Alcohol Less than 10 mg/dL (Less than 10); Alkaline Phosphatase 85 U/L (40-110); Anion Gap 18 mmol/L (10-20); BUN (Urea Nitrogen) 45 mg/dL (8.4-25.7); Bilirubin, Total 1.9 mg/dL (0.2-1.2); Calc. Creatinine Clearance 0 mL/min (70-130); Calcium 9.4 mg/dL (7.8-10.44); Carbon Dioxide 22 mmol/L (23-31); Chloride 102 mmol/L (98-107); Estimated GFR 42; Globulin 2.6 g/dL (2.4-3.5); Glucose 124 mg/dL (83-110); Lipase 42 U/L (8-78); Potassium 3.8 mmol/L (3.5-5.1); Protein, Total 6.9 g/dL (5.8-8.1); Salicylate Less than 8.0 mg/dL (15.0-30.0); Sodium 138 mmol/L (136-145)
[2022-06-15 17:37] LABS: INR-International Normal Ratio 2.2; PTT 43.3 sec (22.9-36.1); Prothrombin Time 24.8 sec (12.0-14.7)
[2022-06-15 18:07] LABS: CKMB 8.5 ng/mL (0-6.6)
[2022-06-15 19:10] LABS: Bacteria/HPF 3+ HPF (None Seen); Bilirubin Negative (Negative); Blood, Urine 1+ (Negative); Clarity Turbid (Clear); Glucose, Urine (Dipstick) Normal (Negative); Ketone, Urine Trace mg/dL (Negative); Leukocyte 75 Leu/uL (Negative); Mucous/LPF Rare LPF (<2+); Nitrite Negative (Negative); Protein, Urine (Dipstick) 100 mg/dL (Neg-Trace); Squamous Epithelial 0-3 HPF (0-3); pH, Urine 5.5 (5.0-9.0)
[2022-06-15 19:11] LABS: Amphetamine Not Detected (NotDetected); Barbiturates Screen Not Detected (NotDetected); Benzodiazepine Screen Not Detected (NotDetected); Cocaine Metabolite Screen Not Detected (NotDetected); Methadone Not Detected (NotDetected); Methamphetamine Not Detected (NotDetected); Opiate Screen Not Detected (NotDetected); Oxycodone Screen Not Detected (NotDetected); Phencyclidine (PCP) Not Detected (NotDetected); THC/Cannabinoid Screen Not Detected (NotDetected); Tricyclic Screen Not Detected (NotDetected)
[2022-06-15] MEDS ORDERED: Aspirin 325 MG TAB ONE (19:25)
[2022-06-15] MEDS ORDERED: cefTRIAXone\\ROCEPHIN 1 GM in Sodium Chloride 0.9% 100 ML IVPB SCH (20:00)
[2022-06-15 20:06] LABS: Lactic Acid 3.8 mmol/L (0.5-2.2)
[2022-06-15 20:55] LABS: Troponin I 0.044 ng/mL (< 0.028)
[2022-06-15] MEDS ORDERED: Guaifenesin DM 100-10/5 ML UDCUP PO PRN (22:43)
[2022-06-15] MEDS ORDERED: Acetaminophen 325 MG TAB PO PRN (22:43)
[2022-06-15] MEDS ORDERED: Acetaminophen 650 MG Suppository PR PRN (22:43)
[2022-06-15] MEDS ORDERED: Ondansetron ODT 4 MG TAB PO PRN (22:43)
[2022-06-15] MEDS ORDERED: Senokot S 8.6-50 MG TAB PO PRN (22:43)
[2022-06-15] MEDS ORDERED: Bisacodyl 5 MG TAB PO PRN (22:43)
[2022-06-15] MEDS ORDERED: Ondansetron PF 4 MG/2 ML Vial IVP PRN (22:43)
[2022-06-15] MEDS ORDERED: Calcium Carbonate 500 MG ChewTAB PO PRN (22:43)
[2022-06-15 23:10] VITALS: BMI 24.5
[2022-06-16 00:32] LABS: Troponin I 0.058 ng/mL (< 0.028)
[2022-06-16] MEDS ORDERED: Senokot 8.6 MG TAB PO PRN (02:11)
[2022-06-16] MEDS ORDERED: Furosemide 40 MG/4 ML VIAL SLOW IVP SCH (02:30)
[2022-06-16 07:28] LABS: #Eosinphils 0.1 thou/uL (0.0-0.7); #Lymphocytes 1.4 thou/uL (1.20-3.40); #Monocytes 0.7 thou/uL (0.11-0.59); #Neutrophils 6.8 thou/uL (1.40-6.50); %Basophils 0.3 % (0.0-1.0); %Eosinophils 1.1 % (0.0-10.0); %Lymphocytes 15.8 % (21.0-51.0); %Monocytes 7.6 % (0.0-10.0); %Neutrophils 75.3 % (42.0-75.0); Hemoglobin 16.9 g/dL (14.0-18.0); Mean Corpuscular HGB CONC 31.9 g/dL (32.0-36.0); Mean Corpuscular Hemoglobin 33.7 pg (27.0-31.0); Platelet Count 251 thou/uL (130-400); RBC Distribution Width 13.6 % (11.5-14.5); Red Blood Cell (RBC) Count 5.02 mill/uL (4.70-6.10)
[2022-06-16 07:38] LABS: Anion Gap 19 mmol/L (10-20); BUN (Urea Nitrogen) 41 mg/dL (8.4-25.7); Calc. Creatinine Clearance 52 mL/min (70-130); Calcium 9.5 mg/dL (7.8-10.44); Carbon Dioxide 21 mmol/L (23-31); Chloride 103 mmol/L (98-107); Estimated GFR 53; Glucose 82 mg/dL (83-110); Potassium 3.9 mmol/L (3.5-5.1); Sodium 139 mmol/L (136-145)
[2022-06-16] MEDS ORDERED: Spironolactone 25 MG TAB PO SCH (09:00)
[2022-06-16] MEDS ORDERED: Famotidine 20 MG TAB PO SCH ×2 (09:00)
[2022-06-16] MEDS ORDERED: Aspirin 81 mg Enteric Coated Tablet PO SCH (09:00)
[2022-06-16] MEDS ORDERED: Sacubitril 49 MG/Valsartan 51 MG TABLET PO SCH (09:00)
[2022-06-16] MEDS ORDERED: Apixaban 5 MG TAB PO SCH (09:00)
[2022-06-16] MEDS ORDERED: Venlafaxine 75 MG TAB PO SCH (09:00)
[2022-06-16] MEDS ORDERED: Furosemide 20 MG/2 ML VIAL SLOW IVP SCH (10:00)
[2022-06-16 17:19] VITALS: BP 115/82; TEMP 96.8
[2022-06-16] MEDS ORDERED: Atorvastatin Calcium 40 MG TAB PO SCH (21:00)
[2022-06-18] MEDS ORDERED: FLU VACC QS2022-23(65YR UP)/PF 240 MCG/0.7 ML SYRINGE IM ONE (09:00)
== END 2022-06-16 18:42 | DRG 871 ==
LOC: ERS 15:57 → NEURO 19:26 → OBSVTOIN 06-16 16:07
PROVIDERS: ADMIT Student in an Organized Health Care Education/Training Program; ATTEND Internal Medicine
DX: A41.9 Sepsis, unspecified organism (principal); G93.41 Metabolic encephalopathy; N17.9 Acute kidney failure, unspecified; I69.352 Hemiplegia and hemiparesis following cerebral infarction affecting left dominant side; N30.01 Acute cystitis with hematuria; I50.22 Chronic systolic (congestive) heart failure; I48.0 Paroxysmal atrial fibrillation; I11.0 Hypertensive heart disease with heart failure; F03.90 Unspecified dementia, unspecified severity, without behavioral disturbance, psychotic disturbance, mood disturbance, and anxiety; R77.8 Other specified abnormalities of plasma proteins; R74.01 Elevation of levels of liver transaminase levels; I25.10 Atherosclerotic heart disease of native coronary artery without angina pectoris; F32.A Depression, unspecified; I25.5 Ischemic cardiomyopathy; Z20.822 Contact with and (suspected) exposure to COVID-19; Z79.01 Long term (current) use of anticoagulants; Z95.810 Presence of automatic (implantable) cardiac defibrillator; Z79.82 Long term (current) use of aspirin; Z79.899 Other long term (current) drug therapy; Z95.5 Presence of coronary angioplasty implant and graft; Z98.890 Other specified postprocedural states
CPT/HCPCS: 36415; 51701; 70450; 71045; 80048; 80053; 80306; 80307; 81003; 81015; 82140; 82550; 82553; 83605; 83690; 83880; 84443; 84484; 85025; 85610; 85730; 87040; 87086; 93005; 96360; 96361; 96374; 96375; 96376; G0378; J0696; J1940; J3490; U0003; U0005